=== PATIENT | male | born 1955 | race Caucasian/White ===

== ENCOUNTER 2018-12-05 05:30 | Outpatient (CLI) | payer OTHER ==
[2018-12-05 10:04] LABS: PTT 27.9 SEC (22.9-36.1); Prothrombin Time 12.8 SEC (12.0-14.7)
[2018-12-05 10:18] LABS: Anion Gap 18 mmol/L (10-20); BUN (Urea Nitrogen) 21 mg/dL (8.4-25.7); Calc. Creatinine Clearance 0 mL/min (70-130); Calcium 9.9 mg/dL (7.8-10.44); Carbon Dioxide 21 mmol/L (23-31); Chloride 104 mmol/L (98-107); Estimated GFR-MDRD 76; Glucose 113 mg/dL (80-115); Potassium 4.8 mmol/L (3.5-5.1); Sodium 138 mmol/L (136-145)
[2018-12-05 12:09] LABS: Band 1 % (5-11); Eosinophils 4 % (0-10); Lymphocytes 29 % (21-51); MDiff Complete? YES; Mean Corpuscular HGB CONC 32.7 g/dL (32.0-36.0); Mean Corpuscular Hemoglobin 29.6 pg (27.0-31.0); Mean Corpuscular Volume 90.4 fL (78.0-98.0); Mean Platelet Volume 6.6 fL (7.4-10.4); Monocytes 5 % (0-10); Neutrophil 61 % (42-75); Platelet Count 277 thou/uL (130-400); RBC Distribution Width 13.1 % (11.5-14.5); RBC Morphology Normal; Red Blood Cell (RBC) Count 5.06 mill/uL (4.70-6.10)
--- NOTE | 2018-12-05 20:24 | EKG ---
Test Reason : Blood Pressure : / mmHG Vent. Rate : 073 BPM Atrial Rate : 073 BPM P-R Int : 142 ms QRS Dur : 080 ms QT Int : 366 ms P-R-T Axes : 056 050 046 degrees QTc Int : 403 ms Normal sinus rhythm Normal ECG Confirmed by DR. Cindy ARMENTA (3) on 12/05/2018 8:24:37 PM Referred By: SALLY Confirmed By:DR. Cindy ARMENTA
== END 2018-12-05 05:31 | disposition home or self-care (01) ==
LOC: LABBT 05:30
PROVIDERS: ATTEND Orthopaedic Surgery
DX: Z01.818 Encounter for other preprocedural examination (principal); M16.12 Unilateral primary osteoarthritis, left hip
CPT/HCPCS: 80048; 85025; 85610; 85730; 87081; 93005; 93010

== ENCOUNTER 2018-12-05 08:30 | Inpatient (IN) | payer OTHER ==
[2018-12-17] MEDS ORDERED: Fentanyl 100 MCG/2 ML VIAL ONE (08:45)
[2018-12-17] MEDS ORDERED: Midazolam HCl 2 mg/2 ml Vial ONE (08:45)
[2018-12-17] MEDS ORDERED: traMADol HCl 50 MG TAB PO PRN ×3 (08:53→09:30)
[2018-12-17] MEDS ORDERED: diphenhydrAMINE 25 MG CAP PO PRN ×2 (08:53→09:30)
[2018-12-17] MEDS ORDERED: Ondansetron PF 4 MG/2 ML Vial IVP PRN ×2 (08:53→09:30)
[2018-12-17] MEDS ORDERED: Zolpidem Tartrate 5 MG TAB PO PRN ×2 (08:53→09:30)
[2018-12-17] MEDS ORDERED: CEFAZOLIN 1 GM VIAL ONE (08:53)
[2018-12-17] MEDS ORDERED: Tranexamic Acid 1,000 MG/10 ML VIAL ONE (08:53)
[2018-12-17] MEDS ORDERED: Acetaminophen 325 MG TAB PO PRN (08:53)
[2018-12-17] MEDS ORDERED: Promethazine HCl 25 MG/ML VIAL IM PRN ×2 (08:53→09:30)
[2018-12-17] MEDS ORDERED: HYDROcodone/Acetaminophen 10/325 mg Tablet PO PRN ×2 (08:53)
[2018-12-17] MEDS ORDERED: Sodium Chloride 0.9% 200 ML ONE (08:54)
[2018-12-17] MEDS ORDERED: Lidocaine 1.5% w/Epi 1:200K 30 ML VIAL (Epid Use) ONE (09:18)
[2018-12-17] MEDS ORDERED: Fentanyl 250 MCG/5 ML VIAL ONE (09:22)
[2018-12-17] MEDS ORDERED: diphenhydrAMINE 50 MG/ML VIAL IM PRN (09:30)
[2018-12-17] MEDS ORDERED: Hydrocerin (Eucerin) Cream 120 gm Jar TOP PRN (09:30)
[2018-12-17] MEDS ORDERED: HYDROcodone/Acetaminophen 5/325 mg Tablet PO PRN ×2 (09:30)
[2018-12-17] MEDS ORDERED: Naloxone HCl 0.4 mg/ml Vial IVP PRN (09:30)
[2018-12-17] MEDS ORDERED: diphenhydrAMINE 50 MG/ML VIAL IVP PRN (09:30)
[2018-12-17] MEDS ORDERED: Naloxone HCl 0.4 mg/ml Vial IV PRN (09:30)
[2018-12-17] MEDS ORDERED: Promethazine HCl 25 MG SUPP PR PRN (09:30)
[2018-12-17] MEDS ORDERED: Bupivacaine 0.25% HCL 30 ML VIAL ONE (10:08)
[2018-12-17] MEDS ORDERED: ePHEDrine 50 MG/ML VIAL ONE (12:08)
[2018-12-17] MEDS ORDERED: Lidocaine 1% PF 5 ML VIAL ONE (12:08)
[2018-12-17] MEDS ORDERED: Dexamethasone 20 MG/5 ML VIAL ONE (12:08)
[2018-12-17] MEDS ORDERED: PROPOFOL 200 MG/20 ML VIAL ONE (12:08)
[2018-12-17] MEDS ORDERED: PHENYLEPHRINE-NS 100 MCG/ML 10 ML SYRINGE ONE (12:08)
[2018-12-17] MEDS ORDERED: Glycopyrrolate 0.2 MG/ML 5 ML SYRINGE ONE (12:08)
[2018-12-17] MEDS ORDERED: Ondansetron PF 4 MG/2 ML Vial ONE (12:08)
[2018-12-17] MEDS ORDERED: Rocuronium Bromide 10 MG/ML (10ML VIAL) ONE (12:08)
--- NOTE | 2018-12-17 12:53 | RAD ---
Exam: 2 views of the left hip COMPARISON: None HISTORY: Status post left hip arthroplasty FINDINGS: 2 views of the left hip shows the patient is status post left hip arthroplasty without sharon hardware hardware lucency or fracture. Overlying soft tissue swelling and air in the soft tissues are from recent surgery. IMPRESSION: Status post left hip arthroplasty without evidence of complication.
[2018-12-17] MEDS ORDERED: Ketorolac Tromethamine 30 MG/ML VIAL IM SCH (14:00)
--- NOTE | 2018-12-17 14:01 | OP ---
DATE OF PROCEDURE: 12/17/2018 PREOPERATIVE DIAGNOSIS: Degenerative joint disease, left foot. POSTOPERATIVE DIAGNOSIS: Degenerative joint disease, left foot. PROCEDURE PERFORMED: Left total hip arthroplasty using a Leonard Accolade 3.5 stem and -5 ceramic head, 36 mm x 15 mm PSL cup X3 polyethylene liner. ESTIMATED BLOOD LOSS: 200. MILL ROLL OPERATOR: Gray Gee PA-C PROCEDURE IN DETAIL: After informed consent was obtained in the preoperative holding area, the patient was taken to the operative suite where general anesthesia was induced. The patient was then positioned in the lateral decubitus position. The hip was then prepped and draped in usual sterile fashion. The patient received preoperative antibiotics. Prior to incision, time-out was called and all members of the surgical team agreed upon site, surgeon, and patient. After this, a longitudinal incision was made directly over the trochanter, noted by palpation extending 2 fingerbreadths above and below the trochanter. The deeper subcutaneous layer was undermined with Bovie electrocautery. The iliotibial band was encountered and incised sharply and the plane below this was developed bluntly. A Charnley retractor was placed to hold this opened. The lateral aspect of the trochanter and the abductor muscles were encountered and then reflected anteriorly off the trochanter using Bovie electrocautery. Once this was completed, the anterior capsule was then encountered and identified and copious capsulotomy was carried out, exposing the femoral neck and head. Dislocation maneuver was then performed and an in situ provisional neck cut was then made using the oscillating saw. Attention was then turned to acetabular preparation and sequential reaming was carried out up to the appropriate diameter. A trial was then malleted into place with good firm resistance and no pullout. The permanent acetabular shell was then malleted squarely into place, as was the appropriate liner. Once completed, the wound was copiously irrigated and attention was then turned to femoral preparation. Flexion and external rotation were performed of the exposed thigh and femoral elevators were then placed at the proximal aspect of the wound. Canal finder was used to establish the length of the canal and sequential reaming was carried out, followed by broaching. Once the appropriate stability was established with the trial broaches with flexion, extension and rotational stability, we did trial with neutral and 2 mm offset incremental necks. Once the appropriate size was decided upon, with good stability noted with flexion, extension, internal and external rotation and shuck being negative, we removed the femoral trial broach and malletted into place the permanent prosthesis with good firm fit, which was also stable to rotation. Again, the hip felt very stable to flexion, extension, internal and external rotation. Leg lengths appeared near anatomic clinically and we were quite happy with prosthesis placement. Copious irrigation was then carried out through the entirety of the wound. Primary closure of the abductors was accomplished with interrupted #2 Vicryl [id number] stitches and the IT band was then closed with interrupted #2 Vicryl, oversewn with a #2 running barbed Quill stitch. Subcutaneous fascia was closed with running barbed Quill stitch and a subcuticular Monocryl barbed Quill stitch was used for skin closure and augmented with skin cement. A sterile dressing was applied. The procedure was terminated without any complication. All counts were correct. The patient was awakened in the operative suite and taken to the recovery room in stable condition. Job ID: [id number]
[2018-12-17] MEDS: Sodium Chloride 0.9% 1,000 ML IV SCH ×2 (14:20→17:22)
[2018-12-17] MEDS: Lisinopril/Hydrochlorothiazide 10 mg/12.5 mg Tablet PO SCH (14:22)
[2018-12-17] MEDS: Ferrous Gluconate 324 MG TAB PO SCH ×2 (14:22→21:22)
[2018-12-17] MEDS: Multivitamin W/ Minerals 1 TAB PO SCH (14:22)
[2018-12-17] MEDS: Senokot S 8.6-50 MG TAB PO SCH ×2 (14:22→21:22)
[2018-12-17] MEDS: Aspirin 81 mg Enteric Coated Tablet PO SCH ×2 (14:22→21:22)
[2018-12-17] MEDS: Gabapentin 400 MG CAP PO SCH ×2 (14:22→21:22)
[2018-12-17] MEDS: Ketorolac Tromethamine 30 MG/ML VIAL IVP SCH ×2 (14:23→18:21)
--- NOTE | 2018-12-17 17:52 | PDOC.PN ---
- Subjective Encounter Start Date: 12/17/18 Encounter Start Time: 17:25 Subjective: Consult for med mgmt. Hx of HTN, DM, neuropathy and tobacco abuse. -: s/p L JOSE. Reviewed all hx, labs, rads and EKG's. - Objective MAR Reviewed: Yes Vital Signs & Weight: Vital Signs (12 hours) Temp Pulse Resp BP Pulse Ox 12/17/18 16:24 97.5 F L 72 18 147/77 H 95 12/17/18 13:50 97.6 F 70 18 149/75 H 99 Weight Weight 167 lb EKG Reviewed by me: Yes (NSR, no acute ST-T wave changes, normal axis) Phys Exam - Physical Examination Constitutional: NAD HEENT: PERRLA, sclera anicteric, oral pharynx no lesions Neck: no nodes, no JVD, supple, full ROM few exp wheezes Respiratory: no rales, no rhonchi Distant heart sounds, S1, S2 Cardiovascular: RRR, no significant murmur, no rub, gallop Gastrointestinal: soft, non-tender, no distention, positive bowel sounds L hip with surgical dressing in place Musculoskeletal: pulses present, edema present Neurological: moves all 4 limbs Psychiatric: A&O x 3 Skin: normal turgor, cap refill <2 seconds Dx/Plan (1) DM II (diabetes mellitus, type II), controlled Code(s): E11.9 - TYPE 2 DIABETES MELLITUS WITHOUT COMPLICATIONS Status: Chronic Comment: Add ISS, continue Metformin 1000mg daily, serial accuchecks, ADA (2) HTN (hypertension) Code(s): I10 - ESSENTIAL (PRIMARY) HYPERTENSION Status: Chronic Qualifiers: Hypertension type: essential hypertension Qualified Code(s): I10 - Essential (primary) hypertension Comment: Continue Lisinopril/HCTZ daily, serial BP monitoring (3) Tobacco abuse Code(s): Z72.0 - TOBACCO USE Status: Chronic Comment: Tobacco cessation resources (4) DJD (degenerative joint disease) Code(s): M19.90 - UNSPECIFIED OSTEOARTHRITIS, UNSPECIFIED SITE Status: Chronic Comment: s/p L JOSE, pain control, OOB with PT, ASA 81mg BID - Plan PT/OT, delinquency prevention social worker, out of bed/ambulate, DVT proph w/SCDs Stable currently -: Resume Lisinopril/HCTZ -: Add ISS for glycemic control -: Continue ASA 81mg BID -: Continue Gabapentin * AM lab: CBC * Thank you for the consult, will continue to follow with primary team
[2018-12-17] MEDS ORDERED: HumaLOG 300 UNITS/3 ML VIAL SC PRN (17:53)
[2018-12-17] MEDS ORDERED: Dextrose 50% Abboject 50 ML SYRINGE SLOW IVP PRN (17:53)
[2018-12-17] MEDS ORDERED: Dextrose 5% in Water 1,000 ML IV PRN (17:53)
[2018-12-17] MEDS: CEFAZOLIN 2 GM in Premix Bag 1 BAG IVPB SCH (18:21)
[2018-12-17] MEDS ORDERED: Zolpidem Tartrate 5 MG TAB PO SCH (21:00)
[2018-12-17] MEDS: Atorvastatin Calcium 20 MG TAB PO SCH (21:22)
[2018-12-18] MEDS: Ketorolac Tromethamine 30 MG/ML VIAL IVP SCH ×5 (00:01→23:17)
[2018-12-18] MEDS: CEFAZOLIN 2 GM in Premix Bag 1 BAG IVPB SCH (00:04)
[2018-12-18] MEDS: Sodium Chloride 0.9% 1,000 ML IV SCH ×2 (04:20→14:39)
[2018-12-18] MEDS: Fentanyl 5 mcg/Bup 0.075% Cadd 100 ML EPIDURAL SCH ×2 (04:30→17:51)
[2018-12-18 06:02] LABS: Hemoglobin 11.2 g/dL (14.0-18.0); Mean Corpuscular HGB CONC 33.6 g/dL (32.0-36.0); Mean Corpuscular Hemoglobin 30.3 pg (27.0-31.0); Mean Corpuscular Volume 90.1 fL (78.0-98.0); Mean Platelet Volume 6.6 fL (7.4-10.4); Platelet Count 217 thou/uL (130-400); RBC Distribution Width 12.5 % (11.5-14.5); Red Blood Cell (RBC) Count 3.71 mill/uL (4.70-6.10); White Blood Cell (WBC) Count 11.1 thou/uL (4.8-10.8)
[2018-12-18] MEDS: Gabapentin 400 MG CAP PO SCH ×2 (07:56→20:15)
[2018-12-18] MEDS: Senokot S 8.6-50 MG TAB PO SCH ×2 (07:56→20:13)
[2018-12-18] MEDS: metFORMIN XR 500 MG TAB PO SCH (07:56)
[2018-12-18] MEDS: Multivitamin W/ Minerals 1 TAB PO SCH (07:57)
[2018-12-18] MEDS: Lisinopril/Hydrochlorothiazide 10 mg/12.5 mg Tablet PO SCH (07:57)
[2018-12-18] MEDS: Ferrous Gluconate 324 MG TAB PO SCH ×2 (07:57→20:13)
[2018-12-18] MEDS: Aspirin 81 mg Enteric Coated Tablet PO SCH ×2 (11:18→20:14)
[2018-12-18 11:53] VITALS: BMI 26.2
--- NOTE | 2018-12-18 12:37 | PRG ---
DATE OF SERVICE: 12/18/2018 SUBJECTIVE: Arvin is a 63-year-old white male, who is postop day one from left total hip arthroplasty. He is doing very well. His pain is relatively will controlled and he is otherwise doing well. OBJECTIVE: VITAL SIGNS: Temperature 98.5, pulse 78, respiratory rate 18, blood pressure 151/72. GENERAL: He is alert and oriented to person, place, time, situation, grossly nonfocal. EXTREMITIES: There is no strikethrough at the incision. He is neurovascular intact in the left lower extremity with good leg lengths. LABORATORY DATA: Hemoglobin and hematocrit 11.2 and 33.4. IMPRESSION: 1. A 63-year-old white male, postoperative day one, left total hip arthroplasty, doing well. 2. Mild postoperative asymptomatic hemorrhagic anemia. PLAN: Continue current care. Probable discharge tomorrow. Job ID: [id number]
[2018-12-18] MEDS ORDERED: Calcium Carbonate 500 MG ChewTAB PO PRN (17:00)
--- NOTE | 2018-12-18 17:50 | PDOC.PN ---
- Subjective Encounter Start Date: 12/18/18 Encounter Start Time: 16:35 Subjective: f/u s/p L JOSE POD #1. States pain better controlled after adjustments -: to nerve block. Ambulated with RW. Voiding ok but still has Guerrero in place. - Objective MAR Reviewed: Yes Vital Signs & Weight: Vital Signs (12 hours) Temp Pulse Resp BP BP BP Pulse Ox 12/18/18 15:27 98.1 F 82 16 125/73 94 L 12/18/18 12:52 98.3 F 69 16 108/67 96 12/18/18 08:00 96 12/18/18 07:57 78 151/72 H 12/18/18 07:18 98.5 F 81 18 152/75 H 96 Weight Admit Weight 167 lb Weight 167 lb I&O: 12/17/18 12/18/18 12/19/18 06:59 06:59 06:59 Intake Total 2904 Output Total 2100 Balance 804 Result Diagrams: 12/18/18 05:29 Additional Labs: Accuchecks 12/18/18 12/18/18 12/18/18 15:32 10:02 05:41 POC Glucose 158 H 159 H 126 H 12/17/18 20:38 POC Glucose 283 H Phys Exam - Physical Examination Constitutional: NAD HEENT: PERRLA, sclera anicteric, oral pharynx no lesions Neck: no nodes, no JVD, supple, full ROM diminished in bases, few exp wheezes S1, S2 Cardiovascular: RRR, no significant murmur, no rub, gallop Gastrointestinal: soft, non-tender, no distention, positive bowel sounds L hip with edema and dressing in place Musculoskeletal: pulses present, edema present Neurological: normal sensation, moves all 4 limbs Psychiatric: A&O x 3 Skin: normal turgor, cap refill <2 seconds Deviation from normal: Guerrero with clear urine Dx/Plan (1) DM II (diabetes mellitus, type II), controlled Code(s): E11.9 - TYPE 2 DIABETES MELLITUS WITHOUT COMPLICATIONS Status: Chronic Comment: Add ISS, continue Metformin 1000mg daily, serial accuchecks, ADA (2) HTN (hypertension) Code(s): I10 - ESSENTIAL (PRIMARY) HYPERTENSION Status: Chronic Qualifiers: Hypertension type: essential hypertension Qualified Code(s): I10 - Essential (primary) hypertension Comment: Continue Lisinopril/HCTZ daily, serial BP monitoring (3) Tobacco abuse Code(s): Z72.0 - TOBACCO USE Status: Chronic Comment: Tobacco cessation resources (4) DJD (degenerative joint disease) Code(s): M19.90 - UNSPECIFIED OSTEOARTHRITIS, UNSPECIFIED SITE Status: Chronic Comment: s/p L JOSE, pain control, OOB with PT, ASA 81mg BID (5) Status post left hip replacement Code(s): Z96.642 - PRESENCE OF LEFT ARTIFICIAL HIP JOINT Status: Acute Comment: POD #1, pain control, wean off nerve block, OOB with PT - Plan plan discussed w/ family, PT/OT, social media marketing specialist, incentive spirometry, out of bed/ambulate, DVT proph w/SCDs Stable currently -: Continue Metformin 1000mg daily -: Continue Lisinopril/HCTZ -: Continue ASA 81mg BID -: Likely home in 24h * .
[2018-12-18] MEDS: Atorvastatin Calcium 20 MG TAB PO SCH (20:14)
[2018-12-19] MEDS: Sodium Chloride 0.9% 1,000 ML IV SCH ×2 (00:14→11:00)
[2018-12-19 04:22] LABS: Hemoglobin 10.9 g/dL (14.0-18.0); Mean Corpuscular HGB CONC 33.4 g/dL (32.0-36.0); Mean Corpuscular Hemoglobin 30.5 pg (27.0-31.0); Mean Corpuscular Volume 91.4 fL (78.0-98.0); Mean Platelet Volume 6.6 fL (7.4-10.4); Platelet Count 190 thou/uL (130-400); RBC Distribution Width 12.6 % (11.5-14.5); Red Blood Cell (RBC) Count 3.56 mill/uL (4.70-6.10); White Blood Cell (WBC) Count 12.1 thou/uL (4.8-10.8)
[2018-12-19] MEDS: Ketorolac Tromethamine 30 MG/ML VIAL IVP SCH (06:01)
[2018-12-19] MEDS: HumaLOG 300 UNITS/3 ML VIAL SC PRN ×2 (06:03→11:44)
[2018-12-19] MEDS: Fentanyl 5 mcg/Bup 0.075% Cadd 100 ML EPIDURAL SCH (06:32)
[2018-12-19] MEDS: metFORMIN XR 500 MG TAB PO SCH (08:49)
[2018-12-19] MEDS: Gabapentin 400 MG CAP PO SCH (08:49)
[2018-12-19] MEDS: Ferrous Gluconate 324 MG TAB PO SCH (08:49)
[2018-12-19] MEDS: Aspirin 81 mg Enteric Coated Tablet PO SCH (08:49)
[2018-12-19] MEDS: Multivitamin W/ Minerals 1 TAB PO SCH (08:50)
[2018-12-19] MEDS: Lisinopril/Hydrochlorothiazide 10 mg/12.5 mg Tablet PO SCH (08:50)
[2018-12-19] MEDS: Senokot S 8.6-50 MG TAB PO SCH (08:50)
[2018-12-19] MEDS ORDERED: HYDROcodone/Acetaminophen 10/325 mg Tablet PO PRN ×2 (09:49)
[2018-12-19 11:55] VITALS: BP 157/73; TEMP 98.9
== END 2018-12-19 12:11 | disposition home or self-care (01) | DRG 470 ==
LOC: SJJU 12-17 08:01
PROVIDERS: ADMIT Orthopaedic Surgery; ATTEND Orthopaedic Surgery
PROC: 0SRB03Z Replacement of Left Hip Joint with Ceramic Synthetic Substitute, Open Approach (ICD-10-PCS; principal; 2018-12-17)
DX: M19.072 Primary osteoarthritis, left ankle and foot (principal); D62 Acute posthemorrhagic anemia; E11.9 Type 2 diabetes mellitus without complications; I10 Essential (primary) hypertension; F17.210 Nicotine dependence, cigarettes, uncomplicated; Z71.6 Tobacco abuse counseling
CPT/HCPCS: 36415; 36416; 85027; 86850; 86900; 86901; 90471; 90686; G0008; J0690; J1100; J1885; J2001; J2250; J2405; J2704; J3010; J3370; J3490; J7050; S0020

== ENCOUNTER 2019-03-03 08:52 | Outpatient (CLI) | payer MEDICARE ==
--- NOTE | 2019-03-03 09:48 | CT ---
CT THORAX NONCONTRAST: (Low dose screening chest CT) DATE: 03/03/2019 HISTORY: 64-year-old male with 50+ years of smoking COMPARISON: none FINDINGS: (A) At posterior lateral basilar right lower lobe there is an 8 x 5 x 4 mm noncalcified pulmonary nod ule with slightly irregular margins (axial image 159 of 256, series 2; coronal image 102 of 150, series 403; sagittal image 40 of 208, series 402) (B) At the posterior aspect of right upper lobe broadly abutting the posterior pleural surface, there is an 11 x 5 x 8 mm noncalcified nodule. (Axial image 52 of 256, series 2; coronal image 108 of 150, series 403; sagittal image 79 of 208, series 402). Several centimeters inferior to that, there is a tiny 2 mm pulmonary nodule which is probably a calci fied granuloma (axial image 80 of 256, series 2) The rest of lungs are clear. No bullae. Trachea and major bronchi are patent and clear. No cardiomega ly, pericardial effusion, pleural effusion, or pneumothorax. Calcification throughout LAD, RCA, and LCx. Nonspecific multiple mildly enlarged mediastinal lymph nodes. IMPRESSION: 1) 8 x 5 x 4 mm noncalcified pulmonary nodule in right lower lobe. Lung RADS category 4A (suspicious, 5-15% chance of malignancy). Recommend PET scan and 3 month follow-up low dose CT. 2) 11 x 5 x 8 mm pulmonary nodule in right upper lobe broadly abutting posterior pleural surface. Alt dillon the size is consistent with a lung RADS category 4A lesion, its broad base against pleural surface is less typical for a malignancy. This should also be further evaluated with PET scan and thr ee-month follow-up low dose CT. 3) coronary atherosclerosis due to calcified coronary lesion: ICD-10: I 25.84
== END 2019-03-03 08:53 | disposition home or self-care (01) ==
LOC: CT 08:52
PROVIDERS: ATTEND Internal Medicine Hematology & Oncology
DX: F17.210 Nicotine dependence, cigarettes, uncomplicated (principal); R91.8 Other nonspecific abnormal finding of lung field; I25.84 Coronary atherosclerosis due to calcified coronary lesion
CPT/HCPCS: G0297

== ENCOUNTER 2019-03-11 13:18 | Outpatient (CLI) | payer MEDICARE ==
--- NOTE | 2019-03-11 18:42 | PET ---
PET CT: 03/11/19 HISTORY: 64-year-old male with pulmonary nodules on low dose CT scan of the lungs of 03/03/19. TECHNIQUE: PET scan with CT attenuation correction is performed from the base of the brain through the proximal thighs following intravenous administration of 13 millicuries of 15-fluorodeoxyglucose in the right a ntecubital fossa. COMPARISON: None. CORRELATION: LDCT of chest dated 03/03/19. FINDINGS: No francie hypermetabolism is seen in the neck, chest, axillae, abdomen or pelvis. No hypermetabolic pu lmonary nodules, liver, adrenal or skeletal lesions are seen. The lung nodules noted on the CT scan demonstrate no abnormal FDG localization. There is physiologic activity in the GI and tracts, heart and the visualized portions of the brain . The CT scan used for attenuation correction demonstrates no evidence of pleural effusions or ascites. IMPRESSION: No hypermetabolic activity in the pulmonary nodules. POS: MEREDITHH
== END 2019-03-11 13:19 | disposition home or self-care (01) ==
LOC: PET 13:18
PROVIDERS: ATTEND Internal Medicine Hematology & Oncology
DX: R91.8 Other nonspecific abnormal finding of lung field (principal)
CPT/HCPCS: 78815; A9552

== ENCOUNTER 2019-04-09 15:16 | Inpatient (IN) | payer MEDICARE ==
[2019-05-27] MEDS ORDERED: Sodium Chloride 0.9% 100 ML ONE (06:16)
[2019-05-27] MEDS ORDERED: Tranexamic Acid 1,000 MG/10 ML VIAL ONE (06:16)
[2019-05-27] MEDS ORDERED: Midazolam HCl 2 mg/2 ml Vial ONE (06:17)
[2019-05-27] MEDS ORDERED: Fentanyl 100 MCG/2 ML VIAL ONE ×3 (06:17→08:58)
[2019-05-27] MEDS ORDERED: traMADol HCl 50 MG TAB PO PRN ×3 (06:59→07:00)
[2019-05-27] MEDS ORDERED: Zolpidem Tartrate 5 MG TAB PO PRN ×2 (06:59→07:00)
[2019-05-27] MEDS ORDERED: diphenhydrAMINE 25 MG CAP PO PRN ×2 (06:59→07:00)
[2019-05-27] MEDS ORDERED: Fentanyl 100 MCG/2 ML VIAL SLOW IVP PRN ×3 (06:59→07:21)
[2019-05-27] MEDS ORDERED: Acetaminophen 325 MG TAB PO PRN (06:59)
[2019-05-27] MEDS ORDERED: Acetaminophen 500 MG TAB PO PRN (06:59)
[2019-05-27] MEDS ORDERED: HYDROcodone/Acetaminophen 10/325 mg Tablet PO PRN ×2 (06:59)
[2019-05-27] MEDS ORDERED: Ondansetron PF 4 MG/2 ML Vial IVP PRN ×2 (06:59→07:00)
[2019-05-27] MEDS ORDERED: Promethazine HCl 25 MG/ML VIAL IM PRN ×3 (06:59→07:42)
[2019-05-27] MEDS ORDERED: Naloxone HCl 0.4 mg/ml Vial IV PRN (07:00)
[2019-05-27] MEDS ORDERED: diphenhydrAMINE 50 MG/ML VIAL IVP PRN (07:00)
[2019-05-27] MEDS ORDERED: Hydrocerin (Eucerin) Cream 120 gm Jar TOP PRN (07:00)
[2019-05-27] MEDS ORDERED: diphenhydrAMINE 50 MG/ML VIAL IM PRN (07:00)
[2019-05-27] MEDS ORDERED: fentaNYL Citrate/PF 500 MCG, Bupivacaine 10 ML in Sodium Chloride 0.9% 80 ML EPIDURAL SCH (07:00)
[2019-05-27] MEDS ORDERED: Naloxone HCl 0.4 mg/ml Vial IVP PRN (07:00)
[2019-05-27] MEDS ORDERED: Promethazine HCl 25 MG SUPP PR PRN (07:00)
[2019-05-27] MEDS ORDERED: Bupivacaine 0.25% 10 ML VIAL EPIDURAL PRN (07:00)
[2019-05-27] MEDS ORDERED: HYDROcodone/Acetaminophen 5/325 mg Tablet PO PRN (07:00)
[2019-05-27] MEDS ORDERED: Ropivacaine 0.2% HCl/PF 20 ML ONE (07:24)
[2019-05-27] MEDS ORDERED: Promethazine HCl 25 MG/ML VIAL SLOW IVP PRN (07:42)
[2019-05-27] MEDS ORDERED: Ondansetron HCl/PF 4 MG/2 ML Vial IVP PRN (07:42)
[2019-05-27] MEDS ORDERED: METFORMIN HCL PO SCH (08:00)
[2019-05-27] MEDS ORDERED: Bupivacaine 0.5% 10 ML VIAL ONE (08:34)
[2019-05-27] MEDS ORDERED: Aspirin 81 mg Enteric Coated Tablet PO SCH (09:00)
[2019-05-27] MEDS ORDERED: Sodium Chloride 0.9% 10 ML ONE (09:02)
[2019-05-27] MEDS ORDERED: Bupivacaine 0.5% 10 ML VIAL EPIDURAL SCH (09:30)
--- NOTE | 2019-05-27 09:53 | RAD ---
2 views of the right hip: 05/27/2019 COMPARISON: None HISTORY: Evaluate hip following surgery FINDINGS: There is a right hip arthroplasty. No evidence for hardware failure. There is postoperative gas adjacent to the proximal right femur. Linear density in the region of the psoas muscle on the right suggests postoperative gas in this region as well. IMPRESSION: Postoperative findings consistent with recent right total hip arthroplasty.
--- NOTE | 2019-05-27 10:39 | OP ---
DATE OF PROCEDURE: 05/27/2019 PROCEDURE PERFORMED: Right total hip arthroplasty using a Leonard Accolade II #5 stem with a -5 ceramic head, 50 mm PSL cup, and X3 polyethylene liner. UNISAW OPERATOR: Emre. BLOOD LOSS: About 100. SPECIMEN: None. DRAIN: None. COMPLICATION: None. PROCEDURE IN DETAIL: After informed consent was obtained in the preoperative holding area, the patient was taken to the operative suite where general anesthesia was induced. The patient was then positioned in the lateral decubitus position. The hip was then prepped and draped in usual sterile fashion. The patient received preoperative antibiotics. Prior to incision, time-out was called and all members of the surgical team agreed upon site, surgeon, and patient. After this, a longitudinal incision was made directly over the trochanter, noted by palpation extending 2 fingerbreadths above and below the trochanter. The deeper subcutaneous layer was undermined with Bovie electrocautery. The iliotibial band was encountered and incised sharply and the plane below this was developed bluntly. A Charnley retractor was placed to hold this opened. The lateral aspect of the trochanter and the abductor muscles were encountered and then reflected anteriorly off the trochanter using Bovie electrocautery. Once this was completed, the anterior capsule was then encountered and identified and copious capsulotomy was carried out, exposing the femoral neck and head. Dislocation maneuver was then performed and an in situ provisional neck cut was then made using the oscillating saw. Attention was then turned to acetabular preparation and sequential reaming was carried out up to the appropriate diameter. A trial was then malleted into place with good firm resistance and no pullout. The permanent acetabular shell was then malleted squarely into place, as was the appropriate liner. Once completed, the wound was copiously irrigated and attention was then turned to femoral preparation. Flexion and external rotation were performed of the exposed thigh and femoral elevators were then placed at the proximal aspect of the wound. Canal finder was used to establish the length of the canal and sequential reaming was carried out, followed by broaching. Once the appropriate stability was established with the trial broaches with flexion, extension and rotational stability, we did trial with neutral and 2 mm offset incremental necks. Once the appropriate size was decided upon, with good stability noted with flexion, extension, internal and external rotation and shuck being negative, we removed the femoral trial broach and malletted into place the permanent prosthesis with good firm fit, which was also stable to rotation. Again, the hip felt very stable to flexion, extension, internal and external rotation. Leg lengths appeared near anatomic clinically and we were quite happy with prosthesis placement. Copious irrigation was then carried out through the entirety of the wound. Primary closure of the abductors was accomplished with interrupted #2 Vicryl [id number] stitches and the IT band was then closed with interrupted #2 Vicryl, oversewn with a #2 running barbed Quill stitch. Subcutaneous fascia was closed with running barbed Quill stitch and a subcuticular Monocryl barbed Quill stitch was used for skin closure and augmented with skin cement. A sterile dressing was applied. The procedure was terminated without any complication. All counts were correct. The patient was awakened in the operative suite and taken to the recovery room in stable condition. Job ID: [id number]
[2019-05-27 10:45] VITALS: BMI 25.0
[2019-05-27] MEDS: Senokot S 8.6-50 MG TAB PO SCH ×2 (12:05→21:06)
[2019-05-27] MEDS: Multivitamin W/ Minerals 1 TAB PO SCH (12:05)
[2019-05-27] MEDS: Gabapentin 400 MG CAP PO SCH ×2 (12:06→21:06)
[2019-05-27] MEDS: Sodium Chloride 0.9% 1,000 ML IV SCH ×2 (12:07→14:13)
[2019-05-27] MEDS: Ferrous Gluconate 324 MG TAB PO SCH ×2 (12:07→21:06)
[2019-05-27] MEDS: metFORMIN XR 500 MG TAB PO SCH ×2 (12:07→17:59)
[2019-05-27] MEDS: Aspirin 81 mg Enteric Coated Tablet PO SCH (12:07)
[2019-05-27] MEDS: Ketorolac Tromethamine 30 MG/ML VIAL IM SCH ×2 (14:08→21:08)
[2019-05-27] MEDS: CEFAZOLIN 2 GM in Premix Bag 1 BAG IVPB SCH ×2 (14:09→21:08)
[2019-05-27] MEDS: Lisinopril/Hydrochlorothiazide 10 mg/12.5 mg Tablet PO SCH (14:11)
--- NOTE | 2019-05-27 15:12 | PDOC.HOSPP ---
- Subjective Encounter Date: 05/27/19 Encounter Time: 14:30 Subjective: Patient seen and examined for med mngt. Pain controlled. No CP or SOB. No new complaints. - Objective Vital Signs & Weight: Vital Signs (12 hours) Temp Pulse Resp BP BP Pulse Ox 05/27/19 14:11 76 127/73 05/27/19 10:05 97.8 F 67 18 165/70 H 99 Weight Weight 160 lb I&O: 05/26/19 05/27/19 05/28/19 06:59 06:59 06:59 Intake Total 240 Balance 240 Additional Labs: Accuchecks 05/27/19 11:25 POC Glucose 156 H EKG Reviewed by me: Yes (SR) Hospitalist ROS - Review of Systems Respiratory: denies: cough, dry, shortness of breath, hemoptysis, SOB with excertion, pleuritic pain, sputum, wheezing, other Cardiovascular: denies: chest pain, palpitations, orthopnea, paroxysmal noc. dyspnea, edema, light headedness, other Gastrointestinal: denies: nausea, vomitting, abdominal pain, diarrhea, constipation, melena, hematochezia, other - Medication Medications: Active Medications Generic Name Dose Route Start Last Admin Trade Name Freq PRN Reason Stop Dose Admin Aspirin 81 mg 05/27/19 09:00 05/27/19 12:07 Ecotrin PO Not Given DAILY ANANTH Ferrous Gluconate 324 mg 05/27/19 09:00 05/27/19 12:07 Fergon PO Not Given BID ANANTH Gabapentin 800 mg 05/27/19 09:00 05/27/19 12:06 Neurontin PO Not Given BID ANANTH Lisinopril/HCTZ 1 tab 05/27/19 09:00 05/27/19 14:11 Prinizide 10-12.5 PO 1 tab QAM ANANTH Administration Cefazolin Sodium/Dextrose 2 gm 50 mls @ 100 mls/hr 05/27/19 14:00 05/27/19 14 :09 / Device IVPB 05/27/19 22:29 50 mls Q8HR ANANTH Administration Sodium Chloride 1,000 mls @ 100 mls/hr 05/27/19 07:00 05/27/19 14:13 Normal Saline 0.9% IV 1,000 mls .Q10H ANANTH Administration Iron/Minerals/Multivitamins 1 tab 05/27/19 09:00 05/27/19 12:05 Theragran M PO Not Given DAILY ANANTH Ketorolac Tromethamine 30 mg 05/27/19 14:00 05/27/19 14:08 Toradol IM 05/29/19 14:01 30 mg Q8HR ANANTH Administration Metformin HCl 1,000 mg 05/27/19 08:00 05/27/19 12:07 Glucophage Xr PO Not Given BID-WM ANANTH Senna/Docusate Sodium 2 tab 05/27/19 09:00 05/27/19 12:05 Senokot S PO Not Given BID ANANTH - Exam General Appearance: NAD Neck: supple, no JVD Heart: RRR, no gallops, no rubs Respiratory: CTAB, no rales Gastrointestinal: soft, non-tender, non-distended, normal bowel sounds Extremities: no edema Neurological: no focal deficits Psychiatric: normal affect, A&O x 3 Hosp A/P (1) DM2 (diabetes mellitus, type 2) Status: Acute Qualifiers: Chronic kidney disease stage: stage 2 (mild) (2) HLD (hyperlipidemia) Code(s): E78.5 - HYPERLIPIDEMIA, UNSPECIFIED Status: Chronic (3) HTN (hypertension) Code(s): I10 - ESSENTIAL (PRIMARY) HYPERTENSION Status: Chronic Qualifiers: (4) Diabetic neuropathy Code(s): E11.40 - TYPE 2 DIABETES MELLITUS WITH DIABETIC NEUROPATHY, UNSP Status: Chronic Qualifiers: Diabetes mellitus type: type 2 (5) DJD (degenerative joint disease) Code(s): M19.90 - UNSPECIFIED OSTEOARTHRITIS, UNSPECIFIED SITE Status: Chronic (6) BPH (benign prostatic hyperplasia) Code(s): N40.0 - BENIGN PROSTATIC HYPERPLASIA WITHOUT LOWER URINRY TRACT SYMP Status: Chronic - Plan PT/OT Cont Lipitor Cont Metformin Add sliding scale with glucose checks ACHS Cont Lisinopril/HCTZ Cont Gabapentin Full code. DPOA - self/family
[2019-05-27] MEDS ORDERED: Dextrose 5% in Water 1,000 ML IV PRN (15:15)
[2019-05-27] MEDS ORDERED: Insulin Regular 300 UNITS/3 ML VIAL SC PRN (15:15)
[2019-05-27] MEDS ORDERED: hydrALAZINE 20 MG/ML VIAL SLOW IVP PRN (15:15)
[2019-05-27] MEDS ORDERED: Dextrose 50% Abboject 50 ML SYRINGE SLOW IVP PRN (15:15)
[2019-05-27] MEDS ORDERED: Ondansetron PF 4 MG/2 ML Vial ONE (17:41)
[2019-05-27] MEDS ORDERED: Ketorolac Tromethamine 30 MG/ML VIAL ONE (17:41)
[2019-05-27] MEDS ORDERED: PROPOFOL 200 MG/20 ML VIAL ONE (17:41)
[2019-05-27] MEDS ORDERED: Rocuronium Bromide 10 MG/ML (10ML VIAL) ONE (17:41)
[2019-05-27] MEDS ORDERED: Lidocaine 1% PF 5 ML VIAL ONE (17:41)
[2019-05-27] MEDS ORDERED: Glycopyrrolate 0.2 MG/ML 5 ML SYRINGE ONE (17:41)
[2019-05-27] MEDS: Insulin Regular 300 UNITS/3 ML VIAL SC PRN (18:00)
[2019-05-27] MEDS: Atorvastatin Calcium 20 MG TAB PO SCH (21:06)
[2019-05-28] MEDS: Sodium Chloride 0.9% 1,000 ML IV SCH ×3 (03:25→23:01)
[2019-05-28] MEDS: HYDROcodone/Acetaminophen 5/325 mg Tablet PO PRN ×2 (04:57→08:54)
[2019-05-28] MEDS: Ketorolac Tromethamine 30 MG/ML VIAL IM SCH (05:00)
[2019-05-28 05:31] LABS: Mean Corpuscular HGB CONC 34.8 g/dL (32.0-36.0); Mean Corpuscular Hemoglobin 30.3 pg (27.0-31.0); Mean Corpuscular Volume 87.2 fL (78.0-98.0); Mean Platelet Volume 6.4 fL (7.4-10.4); Platelet Count 210 thou/uL (130-400); RBC Distribution Width 13.1 % (11.5-14.5); Red Blood Cell (RBC) Count 3.95 mill/uL (4.70-6.10); White Blood Cell (WBC) Count 13.4 thou/uL (4.8-10.8)
[2019-05-28] MEDS: Insulin Regular 300 UNITS/3 ML VIAL SC PRN (06:12)
[2019-05-28] MEDS: Gabapentin 400 MG CAP PO SCH ×2 (08:25→21:11)
[2019-05-28] MEDS: Ferrous Gluconate 324 MG TAB PO SCH ×2 (08:25→21:11)
[2019-05-28] MEDS: Multivitamin W/ Minerals 1 TAB PO SCH (08:25)
[2019-05-28] MEDS: metFORMIN XR 500 MG TAB PO SCH ×2 (08:25→17:34)
[2019-05-28] MEDS: Aspirin 81 mg Enteric Coated Tablet PO SCH (08:25)
[2019-05-28] MEDS: Senokot S 8.6-50 MG TAB PO SCH ×2 (08:25→21:11)
[2019-05-28] MEDS: Lisinopril/Hydrochlorothiazide 10 mg/12.5 mg Tablet PO SCH (08:54)
[2019-05-28] MEDS ORDERED: HYDROcodone/Acetaminophen 10/325 mg Tablet PO PRN (09:14)
[2019-05-28] MEDS ORDERED: Fentanyl 100 MCG/2 ML VIAL SLOW IVP PRN (09:15)
[2019-05-28] MEDS: HYDROcodone/Acetaminophen 10/325 mg Tablet PO PRN ×3 (13:12→21:22)
[2019-05-28] MEDS: Ketorolac Tromethamine 30 MG/ML VIAL IVP SCH ×2 (14:56→21:13)
--- NOTE | 2019-05-28 16:14 | PDOC.HOSPP ---
- Subjective Encounter Date: 05/28/19 Encounter Time: 09:15 Subjective: Patient seen and examined for med mngt. No CP or SOB. Pain controlled.. No new complaints. No overnight events - Objective Vital Signs & Weight: Vital Signs (12 hours) Temp Pulse Resp BP BP Pulse Ox 05/28/19 15:27 99.3 F 89 18 164/74 H 94 L 05/28/19 08:54 77 145/76 H 05/28/19 08:03 99.0 F 77 16 145/76 H 95 05/28/19 04:56 98 182/82 H Weight Admit Weight 160 lb Weight 160 lb I&O: 05/27/19 05/28/19 05/29/19 06:59 06:59 06:59 Intake Total 1790 Output Total 725 Balance 1065 Result Diagrams: 05/28/19 04:59 Additional Labs: Accuchecks 05/28/19 05/27/19 05/27/19 05:32 20:51 15:47 POC Glucose 180 H 151 H 226 H Hospitalist ROS - Review of Systems Respiratory: denies: cough, dry, shortness of breath, hemoptysis, SOB with excertion, pleuritic pain, sputum, wheezing, other Cardiovascular: denies: chest pain, palpitations, orthopnea, paroxysmal noc. dyspnea, edema, light headedness, other - Medication Medications: Active Medications Generic Name Dose Route Start Last Admin Trade Name Freq PRN Reason Stop Dose Admin Hydrocodone Bitart/Acetaminophen 2 tab 05/28/19 09:15 05/28/19 13:12 [place] 10/325 PO 2 tab Q4H PRN Administration Pain 5-10 Aspirin 81 mg 05/27/19 09:00 05/28/19 08:25 Ecotrin PO 81 mg DAILY ANANTH Administration Atorvastatin Calcium 20 mg 05/27/19 21:00 05/27/19 21:06 Lipitor PO 20 mg HS ANANTH Administration Ferrous Gluconate 324 mg 05/27/19 09:00 05/28/19 08:25 Fergon PO 324 mg BID ANANTH Administration Gabapentin 800 mg 05/27/19 09:00 05/28/19 08:25 Neurontin PO 800 mg BID ANANTH Administration Lisinopril/HCTZ 1 tab 05/27/19 09:00 05/28/19 08:54 Prinizide 10-12.5 PO 1 tab QAM ANANTH Administration Hydralazine HCl 10 mg 05/27/19 15:15 05/28/19 04:56 Apresoline SLOW IVP 10 mg Q4H PRN Administration SBP Greater Than 180 Sodium Chloride 1,000 mls @ 100 mls/hr 05/27/19 07:00 05/28/19 14:18 Normal Saline 0.9% IV Not Given .Q10H ANANTH Insulin Human Regular 0 units 05/27/19 15:15 05/28/19 06:12 Humulin R SC 2 unit .MILD SLIDING SCALE PRN Administration Mild Correctional Scale Iron/Minerals/Multivitamins 1 tab 05/27/19 09:00 05/28/19 08:25 Theragran M PO 1 tab DAILY ANANTH Administration Ketorolac Tromethamine 30 mg 05/28/19 14:00 05/28/19 14:56 Toradol IVP 05/29/19 14:01 30 mg Q8HR ANANTH Administration Metformin HCl 1,000 mg 05/27/19 08:00 05/28/19 08:25 Glucophage Xr PO 1,000 mg BID-WM ANANTH Administration Senna/Docusate Sodium 2 tab 05/27/19 09:00 05/28/19 08:25 Senokot S PO 2 tab BID ANANTH Administration - Exam General Appearance: NAD Heart: RRR, no rubs Respiratory: CTAB, no rales Gastrointestinal: soft, non-tender, normal bowel sounds Extremities: no edema Neurological: no new deficit Hosp A/P (1) DM2 (diabetes mellitus, type 2) Status: Acute Qualifiers: Chronic kidney disease stage: stage 2 (mild) (2) HLD (hyperlipidemia) Code(s): E78.5 - HYPERLIPIDEMIA, UNSPECIFIED Status: Chronic (3) HTN (hypertension) Code(s): I10 - ESSENTIAL (PRIMARY) HYPERTENSION Status: Chronic Qualifiers: (4) Diabetic neuropathy Code(s): E11.40 - TYPE 2 DIABETES MELLITUS WITH DIABETIC NEUROPATHY, UNSP Status: Chronic Qualifiers: Diabetes mellitus type: type 2 (5) DJD (degenerative joint disease) Code(s): M19.90 - UNSPECIFIED OSTEOARTHRITIS, UNSPECIFIED SITE Status: Chronic (6) BPH (benign prostatic hyperplasia) Code(s): N40.0 - BENIGN PROSTATIC HYPERPLASIA WITHOUT LOWER URINRY TRACT SYMP Status: Chronic - Plan PT/OT, incentive spirometry Cont Lipitor/Metformin/Gabapentin Contmild sliding scale with glucose checks ACHS Cont Lisinopril/HCTZ
[2019-05-28] MEDS: Atorvastatin Calcium 20 MG TAB PO SCH (21:12)
[2019-05-29] MEDS: HYDROcodone/Acetaminophen 10/325 mg Tablet PO PRN ×3 (03:39→12:31)
[2019-05-29 03:53] VITALS: TEMP 98.5
[2019-05-29] MEDS: Ketorolac Tromethamine 30 MG/ML VIAL IVP SCH (05:10)
[2019-05-29 05:12] LABS: Hemoglobin 10.9 g/dL (14.0-18.0); Mean Corpuscular HGB CONC 34.5 g/dL (32.0-36.0); Mean Corpuscular Hemoglobin 30.4 pg (27.0-31.0); Mean Platelet Volume 6.6 fL (7.4-10.4); Platelet Count 175 thou/uL (130-400); RBC Distribution Width 12.8 % (11.5-14.5); Red Blood Cell (RBC) Count 3.58 mill/uL (4.70-6.10); White Blood Cell (WBC) Count 12.2 thou/uL (4.8-10.8)
[2019-05-29] MEDS: Multivitamin W/ Minerals 1 TAB PO SCH (08:27)
[2019-05-29] MEDS: Lisinopril/Hydrochlorothiazide 10 mg/12.5 mg Tablet PO SCH (08:27)
[2019-05-29] MEDS: Gabapentin 400 MG CAP PO SCH (08:28)
[2019-05-29] MEDS: metFORMIN XR 500 MG TAB PO SCH (08:28)
[2019-05-29] MEDS: Aspirin 81 mg Enteric Coated Tablet PO SCH (08:28)
[2019-05-29] MEDS: Senokot S 8.6-50 MG TAB PO SCH (08:28)
[2019-05-29] MEDS: Ferrous Gluconate 324 MG TAB PO SCH (08:28)
[2019-05-29] MEDS ORDERED: Aspirin 81 mg Enteric Coated Tablet PO SCH (09:00)
--- NOTE | 2019-05-29 09:26 | DIS ---
DATE OF ADMISSION: 05/27/2019 DATE OF DISCHARGE: 05/29/2019 This is Claudia Andrea PA-C dictating a report for Jarret Selby MD. CONSULTANTS: [facility] in [facility]. PREOPERATIVE DIAGNOSIS: Degenerative arthritis, right hip. POSTOPERATIVE DIAGNOSIS: Degenerative arthritis, right hip. PROCEDURE PERFORMED: Right total hip arthroplasty utilizing Leonard components. BRIEF HOSPITAL COURSE: This is a 64-year-old gentleman, who was indicated for the above-mentioned procedure after failing conservative management. Postoperatively, he was admitted to the [place] [address] surgical floor in [facility], where he worked with physical and occupational therapist. His pain was managed postoperatively by [facility]. He received and completed postoperative antibiotics. He worked slowly with therapy on postoperative day 1, but then on postoperative day 2, improved significantly. He was then discharged on postoperative day #2 to home. No complications were incurred during this hospital stay. DISCHARGE DISPOSITION: Home. DISCHARGE CONDITION: Stable. DISCHARGE INSTRUCTIONS: The patient will follow up with Dr. Selby as scheduled. He will keep his surgical wound clean, dry, and intact until followup. DISCHARGE MEDICATIONS: See MAR. Job ID: [id number]
[2019-05-29] MEDS: Sodium Chloride 0.9% 1,000 ML IV SCH (09:42)
[2019-05-29 12:17] VITALS: BP 168/73
== END 2019-05-29 12:44 | disposition home or self-care (01) | DRG 470 ==
LOC: SJJU 05-27 05:32
PROVIDERS: ADMIT Orthopaedic Surgery; ATTEND Orthopaedic Surgery
PROC: 0SR9039 Replacement of Right Hip Joint with Ceramic Synthetic Substitute, Cemented, Open Approach (ICD-10-PCS; principal; 2019-05-27)
DX: M16.11 Unilateral primary osteoarthritis, right hip (principal); E11.22 Type 2 diabetes mellitus with diabetic chronic kidney disease; E78.5 Hyperlipidemia, unspecified; I12.9 Hypertensive chronic kidney disease with stage 1 through stage 4 chronic kidney disease, or unspecified chronic kidney disease; N18.2 Chronic kidney disease, stage 2 (mild); E11.40 Type 2 diabetes mellitus with diabetic neuropathy, unspecified; N40.0 Benign prostatic hyperplasia without lower urinary tract symptoms; Z79.84 Long term (current) use of oral hypoglycemic drugs; Z79.82 Long term (current) use of aspirin; Z79.899 Other long term (current) drug therapy; Z91.018 Allergy to other foods
CPT/HCPCS: 36415; 36416; 85027; J0360; J0690; J1815; J1885; J2001; J2250; J2405; J2704; J2795; J3010; J3370; J3490

== ENCOUNTER 2019-11-13 06:04 | Day surgery (SDC) | payer MEDICARE ==
[2019-11-05 13:58] VITALS: BMI 26.6
[2019-11-13] MEDS ORDERED: Lidocaine 1% w/Epinephrine 1:100K 20 ML VIAL ONE (06:57)
[2019-11-13] MEDS ORDERED: Fentanyl 100 MCG/2 ML VIAL ONE (07:05)
[2019-11-13 07:19] LABS: Hemoglobin 15.5 g/dL (14.0-18.0); Mean Corpuscular Volume 87.3 fL (78.0-98.0); Mean Platelet Volume 7.3 fL (7.4-10.4); Platelet Count 270 thou/uL (130-400); RBC Distribution Width 13.4 % (11.5-14.5); Red Blood Cell (RBC) Count 5.54 mill/uL (4.70-6.10); White Blood Cell (WBC) Count 14.3 thou/uL (4.8-10.8)
[2019-11-13 07:39] LABS: Anion Gap 12 mmol/L (10-20); BUN (Urea Nitrogen) 9 mg/dL (8.4-25.7); Calc. Creatinine Clearance 93 mL/min (70-130); Calcium 8.7 mg/dL (7.8-10.44); Carbon Dioxide 25 mmol/L (23-31); Chloride 105 mmol/L (98-107); Estimated GFR-MDRD 89; Glucose 136 mg/dL (80-115); Potassium 4.7 mmol/L (3.5-5.1); Sodium 137 mmol/L (136-145)
[2019-11-13] MEDS ORDERED: Bupivacaine PF 0.5% 30 ML VIAL ONE (07:39)
--- NOTE | 2019-11-13 09:21 | OP ---
DATE OF PROCEDURE: 11/13/2019 PREOPERATIVE DIAGNOSIS: Cubital tunnel syndrome, left. POSTOPERATIVE DIAGNOSIS: Cubital tunnel syndrome, left. PROCEDURE PERFORMED: Cubital tunnel release. ANESTHESIA: General. ESTIMATED BLOOD LOSS: Minimal. SPECIMENS: None. DRAINS: None. COMPLICATION: None. DESCRIPTION OF PROCEDURE: After receiving Ancef, his arm was prepped and draped in the usual sterile fashion. Arm was exsanguinated. Tourniquet was inflated to 250 mmHg. I made an incision over the medial condyle. This was carried out of the nerve, which was dissected proximally and distally from the arcade above to the motor branch as below. Once the nerve was circumferentially decompressed to mobilize, we used bipolar to control bleeding. Tourniquet was released. Irrigation performed. I injected the skin with Marcaine and lidocaine. The skin was closed with 3-0 Vicryl and vaibhav. Sterile dressings applied. Job ID: [id number]
[2019-11-13] MEDS ORDERED: Lidocaine 1% PF 5 ML VIAL ONE (10:48)
[2019-11-13] MEDS ORDERED: Ondansetron PF 4 MG/2 ML Vial ONE (10:48)
[2019-11-13] MEDS ORDERED: Ketorolac Tromethamine 30 MG/ML VIAL ONE (10:48)
[2019-11-13] MEDS ORDERED: PROPOFOL 200 MG/20 ML VIAL ONE (10:48)
--- NOTE | 2019-11-13 16:59 | EKG ---
Test Reason : PREOP Blood Pressure : / mmHG Vent. Rate : 069 BPM Atrial Rate : 069 BPM P-R Int : 150 ms QRS Dur : 088 ms QT Int : 392 ms P-R-T Axes : 041 022 072 degrees QTc Int : 420 ms Normal sinus rhythm Normal ECG Confirmed by MIMA RUIZ ([id number]) on 11/13/2019 4:58:47 PM Referred By: SALLY Confirmed By:MIMA RUIZ
== END 2019-11-13 10:20 | disposition home or self-care (01) ==
LOC: SDC 06:04
PROVIDERS: ATTEND Orthopaedic Surgery
PROC: 01N40ZZ Release Ulnar Nerve, Open Approach (ICD-10-PCS; principal; 2019-11-13)
DX: G56.22 Lesion of ulnar nerve, left upper limb (principal); E11.9 Type 2 diabetes mellitus without complications; E78.5 Hyperlipidemia, unspecified; I10 Essential (primary) hypertension; G89.29 Other chronic pain; F17.200 Nicotine dependence, unspecified, uncomplicated; M51.9 Unspecified thoracic, thoracolumbar and lumbosacral intervertebral disc disorder; Z79.82 Long term (current) use of aspirin; Z79.84 Long term (current) use of oral hypoglycemic drugs; Z79.899 Other long term (current) drug therapy; Z91.018 Allergy to other foods; Z96.653 Presence of artificial knee joint, bilateral
CPT/HCPCS: 80048; 85027; 93005; 93010; J0690; J1885; J2001; J2405; J2704; J3010; S0020

== ENCOUNTER → 2021-07-15 | Day surgery (SDC) | payer MEDICARE ==
[~2021-07-15] MED LIST: Iopamidol 370 76% 100 ML VIAL ONE
== END ==
LOC: CT 09:01 → RAD 09:02
PROVIDERS: ATTEND Internal Medicine Hematology & Oncology
DX: C18.7 Malignant neoplasm of sigmoid colon (principal); F17.200 Nicotine dependence, unspecified, uncomplicated; D72.829 Elevated white blood cell count, unspecified; R91.8 Other nonspecific abnormal finding of lung field; I25.10 Atherosclerotic heart disease of native coronary artery without angina pectoris; I25.84 Coronary atherosclerosis due to calcified coronary lesion; N20.0 Calculus of kidney; I71.4 Abdominal aortic aneurysm, without rupture; Z91.018 Allergy to other foods; Z96.643 Presence of artificial hip joint, bilateral
CPT/HCPCS: 71260; 74177; Q9967

== ENCOUNTER 2021-07-22 14:15 | Inpatient (IN) | payer MEDICARE ==
[2021-07-27] MEDS ORDERED: Ketamine 50 MG/ML (10ML VIAL) ONE (12:24)
[2021-07-27] MEDS ORDERED: Fentanyl 250 MCG/5 ML VIAL ONE (12:24)
[2021-07-27] MEDS ORDERED: cefOXitin Sodium/Dextrose 2 GM/50 ML BAG ONE (12:28)
[2021-07-27] MEDS ORDERED: Midazolam HCl 2 mg/2 ml Vial ONE (12:32)
[2021-07-27] MEDS ORDERED: Dexamethasone 20 MG/5 ML VIAL ONE (13:08)
[2021-07-27] MEDS ORDERED: Glycopyrrolate 0.2 MG/ML 5 ML SYRINGE ONE (13:08)
[2021-07-27] MEDS ORDERED: Lidocaine 1% PF 5 ML VIAL ONE (13:08)
[2021-07-27] MEDS ORDERED: Ondansetron PF 4 MG/2 ML Vial ONE (13:08)
[2021-07-27] MEDS ORDERED: Bupivacaine HCl 0.5%/Epinephrine 1:200,000/PF 30 ml Vial ONE (13:08)
[2021-07-27] MEDS ORDERED: PROPOFOL 200 MG/20 ML VIAL ONE (13:08)
[2021-07-27] MEDS ORDERED: Rocuronium Bromide 10 MG/ML (10ML VIAL) ONE (13:08)
[2021-07-27] MEDS ORDERED: ePHEDrine 50 MG/ML VIAL ONE (13:08)
[2021-07-27] MEDS ORDERED: Promethazine HCl 25 MG/ML VIAL IM PRN (15:53)
[2021-07-27] MEDS ORDERED: Ketorolac Tromethamine 30 MG/ML VIAL IVP PRN (15:53)
[2021-07-27] MEDS ORDERED: Ondansetron PF 4 MG/2 ML Vial IVP PRN (15:53)
[2021-07-27] MEDS ORDERED: Insulin Regular 300 UNITS/3 ML VIAL SC PRN (15:53)
[2021-07-27] MEDS ORDERED: hydrALAZINE 20 MG/ML VIAL SLOW IVP PRN (15:53)
[2021-07-27] MEDS ORDERED: Ketorolac Tromethamine 30 MG/ML VIAL ONE (16:02)
[2021-07-27] MEDS ORDERED: Morphine 4 MG/ML VIAL SLOW IVP PRN (17:03)
[2021-07-27] MEDS ORDERED: Zolpidem Tartrate 5 MG TAB PO PRN (17:04)
[2021-07-27] MEDS: Morphine 4 MG/ML VIAL SLOW IVP PRN (17:34)
[2021-07-27] MEDS: Sodium Chloride 0.9% 1,000 ML IV SCH (17:36)
[2021-07-27] MEDS: Amlodipine 5 MG TAB PO SCH (20:45)
[2021-07-27] MEDS: Famotidine 20 MG TAB PO SCH (20:46)
[2021-07-27] MEDS: Gabapentin 400 MG CAP PO SCH (20:46)
[2021-07-27] MEDS: Tamsulosin HCl 0.4 MG CAP PO SCH (20:47)
[2021-07-27] MEDS: cefOXitin Sodium 1 GM in Sodium Chloride 0.9% 100 ML IVPB SCH (20:47)
[2021-07-27] MEDS: Famotidine/PF 20 mg/2ml Vial SLOW IVP SCH (22:46)
[2021-07-28] MEDS: Sodium Chloride 0.9% 1,000 ML IV SCH (03:28)
[2021-07-28] MEDS: cefOXitin Sodium 1 GM in Sodium Chloride 0.9% 100 ML IVPB SCH (04:57)
[2021-07-28] MEDS: Morphine 4 MG/ML VIAL SLOW IVP PRN ×4 (05:01→21:07)
[2021-07-28 06:12] LABS: Band 5 % (5-11); Hemoglobin 13.5 g/dL (14.0-18.0); Lymphocytes 1 % (21-51); MDiff Complete? YES; Mean Corpuscular HGB CONC 34.1 g/dL (32.0-36.0); Mean Corpuscular Hemoglobin 30.2 pg (27.0-31.0); Mean Corpuscular Volume 88.4 fL (78.0-98.0); Mean Platelet Volume 7.1 fL (7.4-10.4); Monocytes 9 % (0-10); Neutrophil 85 % (42-75); Platelet Count 200 thou/uL (130-400); Platelet Morphology Comment Appears Adequate; RBC Distribution Width 13.5 % (11.5-14.5); Red Blood Cell (RBC) Count 4.47 mill/uL (4.70-6.10); White Blood Cell (WBC) Count 13.4 thou/uL (4.8-10.8)
[2021-07-28 06:13] LABS: Anion Gap 15 mmol/L (10-20); BUN (Urea Nitrogen) 13 mg/dL (8.4-25.7); Calc. Creatinine Clearance 0 mL/min (70-130); Calcium 8.5 mg/dL (7.8-10.44); Carbon Dioxide 22 mmol/L (23-31); Chloride 94 mmol/L (98-107); Glucose 140 mg/dL (80-115); Potassium 5.5 mmol/L (3.5-5.1); Sodium 125 mmol/L (136-145)
[2021-07-28] MEDS: Gabapentin 400 MG CAP PO SCH ×2 (08:18→21:03)
[2021-07-28] MEDS: Famotidine 20 MG TAB PO SCH ×2 (08:18→21:04)
[2021-07-28] MEDS: Amlodipine 5 MG TAB PO SCH ×2 (08:18→21:04)
[2021-07-28] MEDS ORDERED: Enoxaparin Sodium 40 MG/0.4 ML SYRINGE SC SCH (09:00)
[2021-07-28] MEDS: Famotidine/PF 20 mg/2ml Vial SLOW IVP SCH ×2 (10:26→21:05)
[2021-07-28] MEDS: Lisinopril/Hydrochlorothiazide 10 mg/12.5 mg Tablet PO SCH (10:26)
[2021-07-28] MEDS ORDERED: Sodium Chloride 0.9% 1,000 ML IV SCH (11:12)
[2021-07-28 15:19] LABS: Potassium 4.3 mmol/L (3.5-5.1)
[2021-07-28] MEDS: HYDROcodone/Acetaminophen 7.5/325 mg Tablet PO PRN (16:25)
[2021-07-28] MEDS: Tamsulosin HCl 0.4 MG CAP PO SCH (21:03)
[2021-07-29 05:01] LABS: #Eosinphils 0.1 thou/uL (0.0-0.7); #Lymphocytes 1.5 thou/uL (1.20-3.40); #Monocytes 0.8 thou/uL (0.11-0.59); #Neutrophils 7.7 thou/uL (1.40-6.50); %Basophils 0.3 % (0.0-1.0); %Eosinophils 1.2 % (0.0-10.0); %Monocytes 7.9 % (0.0-10.0); %Neutrophils 75.7 % (42.0-75.0); Hemoglobin 13.4 g/dL (14.0-18.0); Mean Corpuscular HGB CONC 34.5 g/dL (32.0-36.0); Mean Corpuscular Hemoglobin 30.6 pg (27.0-31.0); Mean Corpuscular Volume 88.8 fL (78.0-98.0); Mean Platelet Volume 6.1 fL (7.4-10.4); Platelet Count 248 thou/uL (130-400); RBC Distribution Width 13.6 % (11.5-14.5); Red Blood Cell (RBC) Count 4.37 mill/uL (4.70-6.10); White Blood Cell (WBC) Count 10.2 thou/uL (4.8-10.8)
[2021-07-29 05:23] LABS: Anion Gap 12 mmol/L (10-20); BUN (Urea Nitrogen) 11 mg/dL (8.4-25.7); Calc. Creatinine Clearance 0 mL/min (70-130); Calcium 8.4 mg/dL (7.8-10.44); Carbon Dioxide 23 mmol/L (23-31); Chloride 95 mmol/L (98-107); Glucose 77 mg/dL (80-115); Potassium 4.2 mmol/L (3.5-5.1); Sodium 126 mmol/L (136-145)
[2021-07-29 07:46] VITALS: TEMP 98.2
[2021-07-29] MEDS: HYDROcodone/Acetaminophen 7.5/325 mg Tablet PO PRN ×2 (08:36→12:47)
[2021-07-29] MEDS: Amlodipine 5 MG TAB PO SCH (08:37)
[2021-07-29] MEDS: Famotidine 20 MG TAB PO SCH (08:37)
[2021-07-29] MEDS: Gabapentin 400 MG CAP PO SCH (08:37)
[2021-07-29] MEDS ORDERED: Enoxaparin Sodium 40 MG/0.4 ML SYRINGE SC SCH (09:00)
[2021-07-29] MEDS: Famotidine/PF 20 mg/2ml Vial SLOW IVP SCH (10:13)
[2021-07-29] MEDS: Lisinopril/Hydrochlorothiazide 10 mg/12.5 mg Tablet PO SCH (10:15)
[2021-07-29 11:56] VITALS: BP 134/72
== END 2021-07-29 14:57 | disposition home or self-care (01) | DRG 331 ==
LOC: EDSTATUS 14:15 → SURG A 07-27 11:42 → SURG B 07-27 17:20
PROVIDERS: ADMIT Surgery; ATTEND Surgery
PROC: 0D1B4Z4 Bypass Ileum to Cutaneous, Percutaneous Endoscopic Approach (ICD-10-PCS; principal; 2021-07-27)
PROC: 0DBG4ZZ Excision of Left Large Intestine, Percutaneous Endoscopic Approach (ICD-10-PCS; 2021-07-27)
DX: C18.7 Malignant neoplasm of sigmoid colon (principal); I10 Essential (primary) hypertension; E78.5 Hyperlipidemia, unspecified; J44.9 Chronic obstructive pulmonary disease, unspecified; G62.9 Polyneuropathy, unspecified; J30.2 Other seasonal allergic rhinitis; M19.90 Unspecified osteoarthritis, unspecified site; G56.22 Lesion of ulnar nerve, left upper limb; Z96.643 Presence of artificial hip joint, bilateral; F17.210 Nicotine dependence, cigarettes, uncomplicated; F41.9 Anxiety disorder, unspecified; F32.A Depression, unspecified; N40.0 Benign prostatic hyperplasia without lower urinary tract symptoms; Z79.899 Other long term (current) drug therapy; Z79.84 Long term (current) use of oral hypoglycemic drugs; Z79.82 Long term (current) use of aspirin
CPT/HCPCS: 36415; 36416; 80048; 85025; 88309; J0694; J1100; J1650; J1885; J2250; J2270; J2405; J2704; J3010; J3490; J7050

== ENCOUNTER 2021-07-22 15:09 | Outpatient (CLI) | payer MEDICARE ==
[2021-07-22 18:00] LABS: #Basophils 0.1 10x3/uL (0.0-0.2); #Eosinphils 0.4 10x3/uL (0.0-0.5); #Neutrophils 6.9 10x3/uL (1.5-8.4); %Basophils 1.2 % (0.0-2.0); %Eosinophils 3.8 % (0.0-6.0); %Lymphocytes 22.2 % (18.0-47.0); %Monocytes 9.2 % (0.0-10.0); Hemoglobin 15.3 g/dL (13.5-17.5); Mean Corpuscular HGB CONC 33.6 g/dL (32.0-36.0); Mean Corpuscular Hemoglobin 28.8 pg (27.0-33.0); Mean Corpuscular Volume 85.9 fl (81.2-95.1); Mean Platelet Volume 8.5 fl (7.4-10.4); Platelet Count 326 10x3/uL (150-450); RBC Distribution Width 14.3 % (11.5-14.5); Red Blood Cell (RBC) Count 5.31 10x6/uL (4.32-5.72); White Blood Cell (WBC) Count 10.9 10x3/uL (3.5-10.5)
[2021-07-22 18:25] LABS: Anion Gap 16 mmol/L (10-20); BUN (Urea Nitrogen) 17 mg/dL (8.4-25.7); Calc. Creatinine Clearance 0 mL/min (70-130); Carbon Dioxide 24 mmol/L (23-31); Chloride 94 mmol/L (98-107); Glucose 105 mg/dL (80-115); Potassium 4.5 mmol/L (3.5-5.1); Sodium 129 mmol/L (136-145)
[2021-07-22 20:33] LABS: Hemoglobin A1c 6.2 % (4.0-6.0)
[2021-07-23 00:37] LABS: SARS-CoV-2 PCR by NAA Not Detected (NotDetected)
== END 2021-07-22 15:10 | disposition home or self-care (01) ==
LOC: LABBT 15:09
PROVIDERS: ATTEND Surgery
DX: Z01.812 Encounter for preprocedural laboratory examination (principal); C18.9 Malignant neoplasm of colon, unspecified; Z20.822 Contact with and (suspected) exposure to COVID-19
CPT/HCPCS: 80048; 83036; 85025; U0003; U0005

== ENCOUNTER 2021-07-30 19:12 | Inpatient (IN) | payer MEDICARE ==
[~2021-07-30 19:12] MED LIST changes: -Iopamidol 370 76% 100 ML VIAL ONE; +Iopamidol-370 76% 500 ML 1 ML ONE
[2021-07-30 20:40] LABS: #Lymphocytes 0.8 thou/uL (1.20-3.40); #Monocytes 1.1 thou/uL (0.11-0.59); #Neutrophils 9.8 thou/uL (1.40-6.50); %Basophils 0.3 % (0.0-1.0); %Eosinophils 0.3 % (0.0-10.0); %Lymphocytes 7.1 % (21.0-51.0); %Monocytes 9.5 % (0.0-10.0); %Neutrophils 82.9 % (42.0-75.0); Hemoglobin 15.6 g/dL (14.0-18.0); Mean Corpuscular HGB CONC 34.1 g/dL (32.0-36.0); Mean Corpuscular Hemoglobin 30.2 pg (27.0-31.0); Mean Corpuscular Volume 88.6 fL (78.0-98.0); Mean Platelet Volume 6.3 fL (7.4-10.4); Platelet Count 334 thou/uL (130-400); RBC Distribution Width 13.5 % (11.5-14.5); Red Blood Cell (RBC) Count 5.16 mill/uL (4.70-6.10); White Blood Cell (WBC) Count 11.8 thou/uL (4.8-10.8)
[2021-07-30] MEDS ORDERED: Morphine 4 MG/ML VIAL ONE (20:44)
[2021-07-30] MEDS ORDERED: Ondansetron PF 4 MG/2 ML Vial ONE (20:44)
[2021-07-30 21:00] LABS: Bacteria/HPF 1+ HPF (None Seen); Bilirubin Negative (Negative); Blood, Urine Negative (Negative); Clarity Clear (Clear); Glucose, Urine (Dipstick) Normal (Negative); Ketone, Urine 10 mg/dL (Negative); Leukocyte 75 Leu/uL (Negative); Nitrite Negative (Negative); Protein, Urine (Dipstick) 50 mg/dL (Neg-Trace); RBC/HPF 0-3 HPF (0-3); Specific Gravity, Urine 1.025 (1.002-1.036); Squamous Epithelial None Seen HPF (0-3); Urobilinogen Normal mg/dL (Less than 2); pH, Urine 5.5 (5.0-9.0)
[2021-07-30 21:36] LABS: ALT (SGPT) 17 U/L (8-55); AST (SGOT) 15 U/L (5-34); Albumin 3.9 g/dL (3.4-4.8); Alkaline Phosphatase 91 U/L (40-110); Anion Gap 18 mmol/L (10-20); BUN (Urea Nitrogen) 16 mg/dL (8.4-25.7); Calc. Creatinine Clearance 0 mL/min (70-130); Calcium 9.6 mg/dL (7.8-10.44); Carbon Dioxide 27 mmol/L (23-31); Chloride 88 mmol/L (98-107); Globulin 2.9 g/dL (2.4-3.5); Glucose 143 mg/dL (80-115); Potassium 4.5 mmol/L (3.5-5.1); Protein, Total 6.8 g/dL (5.8-8.1); Sodium 128 mmol/L (136-145)
[2021-07-30] MEDS ORDERED: Benzocaine 20% Spray 60 ML CAN ONE (23:51)
[2021-07-30] MEDS ORDERED: Nicotine 14 MG PATCH ONE (23:51)
[2021-07-31 01:15] VITALS: BMI 25.4
[2021-07-31] MEDS ORDERED: Morphine 4 MG/ML VIAL SLOW IVP PRN ×3 (01:33→09:56)
[2021-07-31] MEDS ORDERED: Ondansetron PF 4 MG/2 ML Vial IVP PRN ×2 (01:45→09:45)
[2021-07-31] MEDS ORDERED: Acetaminophen 325 MG TAB PO PRN (01:45)
[2021-07-31] MEDS ORDERED: Sodium Chloride 0.9% 1,000 ML IV SCH (01:45)
[2021-07-31] MEDS ORDERED: Ondansetron ODT 4 MG TAB SL PRN (01:45)
[2021-07-31] MEDS: Lorazepam 2 MG/ML VIAL SLOW IVP PRN ×3 (02:19→22:27)
[2021-07-31] MEDS ORDERED: FLU VACC QS2021-22(65YR UP)/PF 240 MCG/0.7 ML SYRINGE IM ONE (09:00)
[2021-07-31] MEDS ORDERED: Morphine 2 MG/ML VIAL SLOW IVP PRN (09:45)
[2021-07-31] MEDS ORDERED: hydrALAZINE 20 MG/ML VIAL SLOW IVP PRN (09:45)
[2021-07-31] MEDS ORDERED: Dextrose 5% in Water 1,000 ML IV PRN (09:48)
[2021-07-31] MEDS ORDERED: HumaLOG 300 UNITS/3 ML VIAL SC PRN (09:48)
[2021-07-31] MEDS ORDERED: Dextrose 50% Abboject 50 ML SYRINGE SLOW IVP PRN (09:48)
[2021-07-31] MEDS ORDERED: Non-Formulary Item 1 EACH (Zolpidem Tartrate [Ambien] 10 MG Tablet) PO PRN (09:48)
[2021-07-31] MEDS: Sodium Chloride 0.9% 1,000 ML IV SCH ×2 (10:37→18:30)
[2021-07-31] MEDS: Amlodipine 5 MG TAB PO SCH (20:36)
[2021-07-31] MEDS: Tamsulosin HCl 0.4 MG CAP PO SCH (20:39)
[2021-07-31] MEDS: Famotidine/PF 20 mg/2ml Vial SLOW IVP SCH (20:39)
[2021-07-31] MEDS: Enoxaparin Sodium 40 MG/0.4 ML SYRINGE SC SCH (20:39)
[2021-07-31] MEDS ORDERED: Non-Formulary Item 1 EACH (Amlodipine Besylate [Norvasc] 2.5 MG Tablet) PO SCH (21:00)
[2021-07-31] MEDS: Zolpidem Tartrate 5 MG TAB PO PRN (22:27)
[2021-08-01] MEDS: Sodium Chloride 0.9% 1,000 ML IV SCH (02:23)
[2021-08-01 04:58] LABS: #Eosinphils 0.1 thou/uL (0.0-0.7); #Monocytes 0.9 thou/uL (0.11-0.59); #Neutrophils 5.1 thou/uL (1.40-6.50); %Basophils 0.5 % (0.0-1.0); %Eosinophils 1.4 % (0.0-10.0); %Lymphocytes 14.4 % (21.0-51.0); %Monocytes 13.1 % (0.0-10.0); %Neutrophils 70.6 % (42.0-75.0); Hemoglobin 12.6 g/dL (14.0-18.0); Mean Corpuscular HGB CONC 32.9 g/dL (32.0-36.0); Mean Corpuscular Hemoglobin 29.3 pg (27.0-31.0); Mean Corpuscular Volume 89.1 fL (78.0-98.0); Mean Platelet Volume 5.9 fL (7.4-10.4); Platelet Count 332 thou/uL (130-400); RBC Distribution Width 13.3 % (11.5-14.5); Red Blood Cell (RBC) Count 4.31 mill/uL (4.70-6.10); White Blood Cell (WBC) Count 7.2 thou/uL (4.8-10.8)
[2021-08-01 05:21] LABS: ALT (SGPT) 15 U/L (8-55); AST (SGOT) 14 U/L (5-34); Albumin 3.2 g/dL (3.4-4.8); Alkaline Phosphatase 72 U/L (40-110); Anion Gap 15 mmol/L (10-20); BUN (Urea Nitrogen) 15 mg/dL (8.4-25.7); Bilirubin, Total 0.9 mg/dL (0.2-1.2); Calc. Creatinine Clearance 66 mL/min (70-130); Calcium 8.6 mg/dL (7.8-10.44); Carbon Dioxide 22 mmol/L (23-31); Chloride 97 mmol/L (98-107); Globulin 2.4 g/dL (2.4-3.5); Glucose 82 mg/dL (80-115); Potassium 4.1 mmol/L (3.5-5.1); Protein, Total 5.6 g/dL (5.8-8.1); Sodium 130 mmol/L (136-145)
[2021-08-01] MEDS ORDERED: traMADol HCl 50 MG TAB PO PRN (08:20)
[2021-08-01] MEDS ORDERED: Gabapentin 400 MG CAP PO PRN (09:33)
[2021-08-01] MEDS ORDERED: TADALAFIL 10 MG PO PRN (09:36)
[2021-08-01] MEDS: Famotidine/PF 20 mg/2ml Vial SLOW IVP SCH ×2 (10:10→20:19)
[2021-08-01] MEDS: Lisinopril/Hydrochlorothiazide 10 mg/12.5 mg Tablet PO SCH (10:10)
[2021-08-01] MEDS: Amlodipine 5 MG TAB PO SCH ×2 (10:11→20:20)
[2021-08-01] MEDS: Aspirin 81 mg Enteric Coated Tablet PO SCH (10:12)
[2021-08-01 12:28] LABS: SARS-CoV-2 PCR by NAA Not Detected (NotDetected)
[2021-08-01] MEDS: Enoxaparin Sodium 40 MG/0.4 ML SYRINGE SC SCH (20:19)
[2021-08-01] MEDS: Tamsulosin HCl 0.4 MG CAP PO SCH (20:20)
[2021-08-01] MEDS: Zolpidem Tartrate 5 MG TAB PO PRN (22:31)
[2021-08-01] MEDS: Lorazepam 2 MG/ML VIAL SLOW IVP PRN (22:31)
[2021-08-02] MEDS: Lisinopril/Hydrochlorothiazide 10 mg/12.5 mg Tablet PO SCH (09:52)
[2021-08-02] MEDS: Amlodipine 5 MG TAB PO SCH (09:52)
[2021-08-02] MEDS: Aspirin 81 mg Enteric Coated Tablet PO SCH (09:52)
[2021-08-02] MEDS: Famotidine/PF 20 mg/2ml Vial SLOW IVP SCH (09:53)
[2021-08-02 12:12] VITALS: BP 130/55; TEMP 97.4
== END 2021-08-02 12:38 | disposition home or self-care (01) | DRG 389 ==
LOC: ERS 19:12 → SURG B 23:06
PROVIDERS: ADMIT Specialist; ATTEND Specialist
DX: K56.7 Ileus, unspecified (principal); E87.1 Hypo-osmolality and hyponatremia; I10 Essential (primary) hypertension; E11.9 Type 2 diabetes mellitus without complications; E78.00 Pure hypercholesterolemia, unspecified; N40.0 Benign prostatic hyperplasia without lower urinary tract symptoms; J44.9 Chronic obstructive pulmonary disease, unspecified; N52.9 Male erectile dysfunction, unspecified; K21.9 Gastro-esophageal reflux disease without esophagitis; Z96.643 Presence of artificial hip joint, bilateral; F32.A Depression, unspecified; F41.9 Anxiety disorder, unspecified; G89.29 Other chronic pain; E78.5 Hyperlipidemia, unspecified; M51.36 Other intervertebral disc degeneration, lumbar region; Z20.822 Contact with and (suspected) exposure to COVID-19; F17.210 Nicotine dependence, cigarettes, uncomplicated; Z90.49 Acquired absence of other specified parts of digestive tract; Z85.038 Personal history of other malignant neoplasm of large intestine; Z79.84 Long term (current) use of oral hypoglycemic drugs; Z79.899 Other long term (current) drug therapy
CPT/HCPCS: 36415; 36416; 71045; 74022; 74177; 80053; 81003; 81015; 83605; 83690; 85025; 93005; 96374; 96375; J1650; J2060; J2270; J2405; J7050; Q9967; S0028; U0003; U0005

== ENCOUNTER 2021-09-05 14:00 | Inpatient (IN) | payer MEDICARE ==
[2021-09-06 14:48] VITALS: BMI 25.8
[2021-09-08] MEDS ORDERED: cefOXitin Sodium/Dextrose 2 GM/50 ML BAG ONE (08:01)
[2021-09-08] MEDS ORDERED: Fentanyl 100 MCG/2 ML VIAL ONE (08:17)
[2021-09-08 08:25] LABS: Anion Gap 14 mmol/L (10-20); BUN (Urea Nitrogen) 33 mg/dL (8.4-25.7); Calc. Creatinine Clearance 55 mL/min (70-130); Calcium 9.1 mg/dL (7.8-10.44); Carbon Dioxide 18 mmol/L (23-31); Chloride 95 mmol/L (98-107); Glucose 102 mg/dL (80-115); Potassium 6.1 mmol/L (3.5-5.1); Sodium 121 mmol/L (136-145)
[2021-09-08] MEDS ORDERED: Bupivacaine PF 0.5% 30 ML VIAL ONE (08:28)
[2021-09-08] MEDS ORDERED: Lidocaine 1% w/Epinephrine 1:100K 20 ML VIAL ONE (08:28)
[2021-09-08] MEDS ORDERED: Dextrose 5% in Water 1,000 ML IV PRN (11:17)
[2021-09-08] MEDS ORDERED: Dextrose 50% Abboject 50 ML SYRINGE SLOW IVP PRN (11:17)
[2021-09-08] MEDS ORDERED: HumaLOG 300 UNITS/3 ML VIAL SC PRN ×2 (11:17)
[2021-09-08] MEDS ORDERED: Acetaminophen 325 MG TAB PO PRN (11:39)
[2021-09-08] MEDS ORDERED: Loperamide HCl 2 MG CAP PO PRN (11:39)
[2021-09-08] MEDS ORDERED: Ondansetron ODT 4 MG TAB PO PRN (11:39)
[2021-09-08 12:11] LABS: #Basophils 0.1 thou/uL (0.0-0.2); #Eosinphils 0.4 thou/uL (0.0-0.7); #Lymphocytes 2.7 thou/uL (1.20-3.40); #Monocytes 0.7 thou/uL (0.11-0.59); #Neutrophils 6.2 thou/uL (1.40-6.50); %Eosinophils 3.7 % (0.0-10.0); %Lymphocytes 26.6 % (21.0-51.0); %Monocytes 7.3 % (0.0-10.0); %Neutrophils 61.4 % (42.0-75.0); Hemoglobin 11.5 g/dL (14.0-18.0); Mean Corpuscular HGB CONC 34.4 g/dL (32.0-36.0); Mean Corpuscular Hemoglobin 29.8 pg (27.0-31.0); Mean Corpuscular Volume 86.6 fL (78.0-98.0); Mean Platelet Volume 5.4 fL (7.4-10.4); Platelet Count 239 thou/uL (130-400); RBC Distribution Width 12.6 % (11.5-14.5); Red Blood Cell (RBC) Count 3.85 mill/uL (4.70-6.10)
[2021-09-08] MEDS ORDERED: Gabapentin 400 MG CAP PO PRN (12:17)
[2021-09-08 12:34] LABS: ALT (SGPT) 31 U/L (8-55); AST (SGOT) 13 U/L (5-34); Albumin 3.4 g/dL (3.4-4.8); Alkaline Phosphatase 79 U/L (40-110); Anion Gap 12 mmol/L (10-20); BUN (Urea Nitrogen) 29 mg/dL (8.4-25.7); Bilirubin, Total 0.3 mg/dL (0.2-1.2); Calc. Creatinine Clearance 64 mL/min (70-130); Calcium 8.6 mg/dL (7.8-10.44); Carbon Dioxide 16 mmol/L (23-31); Chloride 99 mmol/L (98-107); Globulin 2.7 g/dL (2.4-3.5); Glucose 94 mg/dL (80-115); Potassium 5.4 mmol/L (3.5-5.1); Protein, Total 6.1 g/dL (5.8-8.1); Sodium 122 mmol/L (136-145)
[2021-09-08] MEDS ORDERED: Escitalopram Oxalate 10 mg Tablet PO SCH (17:00)
[2021-09-08 18:43] LABS: Anion Gap 13 mmol/L (10-20); BUN (Urea Nitrogen) 27 mg/dL (8.4-25.7); Calc. Creatinine Clearance 58 mL/min (70-130); Calcium 8.7 mg/dL (7.8-10.44); Carbon Dioxide 17 mmol/L (23-31); Chloride 100 mmol/L (98-107); Glucose 90 mg/dL (80-115); Potassium 5.5 mmol/L (3.5-5.1); Sodium 124 mmol/L (136-145)
[2021-09-08] MEDS: Sodium Chloride 0.9% 1,000 ML IV SCH (20:14)
[2021-09-08] MEDS: Amlodipine 5 MG TAB PO SCH (20:23)
[2021-09-08] MEDS: Famotidine 20 MG TAB PO SCH (20:23)
[2021-09-08] MEDS ORDERED: Atorvastatin Calcium 20 MG TAB PO SCH (21:00)
[2021-09-08] MEDS ORDERED: Tamsulosin HCl 0.4 MG CAP PO SCH (21:00)
[2021-09-09] MEDS: Sodium Chloride 0.9% 1,000 ML IV SCH (05:36)
[2021-09-09 06:35] LABS: #Basophils 0.1 thou/uL (0.0-0.2); #Eosinphils 0.3 thou/uL (0.0-0.7); #Monocytes 0.6 thou/uL (0.11-0.59); #Neutrophils 5.2 thou/uL (1.40-6.50); %Basophils 0.8 % (0.0-1.0); %Eosinophils 3.2 % (0.0-10.0); %Lymphocytes 24.8 % (21.0-51.0); %Monocytes 7.8 % (0.0-10.0); %Neutrophils 63.5 % (42.0-75.0); Mean Corpuscular HGB CONC 33.6 g/dL (32.0-36.0); Mean Corpuscular Hemoglobin 29.1 pg (27.0-31.0); Mean Corpuscular Volume 86.5 fL (78.0-98.0); Mean Platelet Volume 5.5 fL (7.4-10.4); Platelet Count 236 thou/uL (130-400); RBC Distribution Width 12.7 % (11.5-14.5); Red Blood Cell (RBC) Count 3.77 mill/uL (4.70-6.10); White Blood Cell (WBC) Count 8.2 thou/uL (4.8-10.8)
[2021-09-09 06:42] LABS: Anion Gap 10 mmol/L (10-20); BUN (Urea Nitrogen) 26 mg/dL (8.4-25.7); Calc. Creatinine Clearance 68 mL/min (70-130); Calcium 8.6 mg/dL (7.8-10.44); Carbon Dioxide 19 mmol/L (23-31); Chloride 101 mmol/L (98-107); Glucose 88 mg/dL (80-115); Potassium 5.2 mmol/L (3.5-5.1); Sodium 125 mmol/L (136-145)
[2021-09-09] MEDS ORDERED: Enoxaparin Sodium 40 MG/0.4 ML SYRINGE SC SCH (09:00)
[2021-09-09] MEDS: Amlodipine 5 MG TAB PO SCH (09:46)
[2021-09-09] MEDS: Famotidine 20 MG TAB PO SCH (09:46)
[2021-09-09 15:45] VITALS: BP 144/74; TEMP 98.2
[2021-09-10 14:17] LABS: SARS-CoV-2 PCR by NAA Not Detected (NotDetected)
[2021-09-11] MEDS ORDERED: FLU VACC QS2021-22(65YR UP)/PF 240 MCG/0.7 ML SYRINGE IM ONE (18:45)
== END 2021-09-09 16:00 | disposition home or self-care (01) | DRG 394 ==
LOC: SURG A 09-08 06:57 → SURG B 09-08 10:47
PROVIDERS: ADMIT Surgery; ATTEND Hospitalist
DX: K94.13 Enterostomy malfunction (principal); C18.9 Malignant neoplasm of colon, unspecified; Z20.822 Contact with and (suspected) exposure to COVID-19; E87.1 Hypo-osmolality and hyponatremia; N17.9 Acute kidney failure, unspecified; M51.36 Other intervertebral disc degeneration, lumbar region; M19.90 Unspecified osteoarthritis, unspecified site; Z96.643 Presence of artificial hip joint, bilateral; F17.210 Nicotine dependence, cigarettes, uncomplicated; E86.0 Dehydration; E87.5 Hyperkalemia; K21.9 Gastro-esophageal reflux disease without esophagitis; E11.22 Type 2 diabetes mellitus with diabetic chronic kidney disease; E11.42 Type 2 diabetes mellitus with diabetic polyneuropathy; G89.29 Other chronic pain; E78.5 Hyperlipidemia, unspecified; I12.9 Hypertensive chronic kidney disease with stage 1 through stage 4 chronic kidney disease, or unspecified chronic kidney disease; N18.2 Chronic kidney disease, stage 2 (mild); N40.0 Benign prostatic hyperplasia without lower urinary tract symptoms; Z82.49 Family history of ischemic heart disease and other diseases of the circulatory system; Z79.84 Long term (current) use of oral hypoglycemic drugs; Z79.82 Long term (current) use of aspirin; Z79.899 Other long term (current) drug therapy; Z90.49 Acquired absence of other specified parts of digestive tract
CPT/HCPCS: 36415; 36416; 76770; 80048; 85025; 93005; 93010; J0694; J3010; J7050; S0020; U0003; U0005

== ENCOUNTER 2021-09-12 11:21 | Inpatient (IN) | payer MEDICARE ==
[2021-09-09 14:43] VITALS: BMI 25.8
[2021-09-12] MEDS ORDERED: cefOXitin Sodium/Dextrose 2 GM/50 ML BAG ONE (12:20)
[2021-09-12 12:28] LABS: Anion Gap 13 mmol/L (10-20); BUN (Urea Nitrogen) 18 mg/dL (8.4-25.7); Calc. Creatinine Clearance 59 mL/min (70-130); Calcium 10.3 mg/dL (7.8-10.44); Carbon Dioxide 21 mmol/L (23-31); Chloride 101 mmol/L (98-107); Glucose 110 mg/dL (80-115); Potassium 5.1 mmol/L (3.5-5.1); Sodium 130 mmol/L (136-145)
[2021-09-12] MEDS ORDERED: Famotidine/PF 20 mg/2ml Vial ONE (13:27)
[2021-09-12] MEDS ORDERED: Morphine 10 MG/ML VIAL ONE (13:27)
[2021-09-12] MEDS ORDERED: Dexamethasone 20 MG/5 ML VIAL ONE (13:46)
[2021-09-12] MEDS ORDERED: Phenylephrine 10 MG/ML VIAL ONE (13:46)
[2021-09-12] MEDS ORDERED: PROPOFOL 200 MG/20 ML VIAL ONE (13:46)
[2021-09-12] MEDS ORDERED: Rocuronium Bromide 10 MG/ML (10ML VIAL) ONE (13:46)
[2021-09-12] MEDS ORDERED: Glycopyrrolate 0.2 MG/ML 5 ML SYRINGE ONE (13:46)
[2021-09-12] MEDS ORDERED: Lidocaine 1% PF 5 ML VIAL ONE (13:46)
[2021-09-12] MEDS ORDERED: PACU-Morphine 4MG/ML VIAL SLOW IVP PRN (14:27)
[2021-09-12] MEDS ORDERED: Morphine Sulfate 2 MG/ML SYRINGE SLOW IVP PRN (14:27)
[2021-09-12] MEDS ORDERED: Promethazine HCl 25 MG/ML VIAL IM PRN ×2 (14:27→17:04)
[2021-09-12] MEDS ORDERED: Meperidine HCl/PF 25 MG/ML VIAL SLOW IVP PRN (14:27)
[2021-09-12] MEDS ORDERED: Promethazine HCl 25 MG/ML VIAL IVPB PRN (14:27)
[2021-09-12] MEDS ORDERED: Morphine 4 MG/ML VIAL ONE ×2 (15:22→15:43)
[2021-09-12] MEDS ORDERED: Promethazine HCl 25 MG/ML VIAL ONE (15:34)
[2021-09-12] MEDS ORDERED: hydrALAZINE 20 MG/ML VIAL SLOW IVP PRN (17:04)
[2021-09-12] MEDS ORDERED: HumaLOG 300 UNITS/3 ML VIAL SC PRN (17:04)
[2021-09-12] MEDS ORDERED: Ondansetron PF 4 MG/2 ML Vial IVP PRN (17:04)
[2021-09-12] MEDS ORDERED: Dextrose 5% in Water 1,000 ML IV PRN (17:04)
[2021-09-12] MEDS ORDERED: Dextrose 50% Abboject 50 ML SYRINGE SLOW IVP PRN (17:04)
[2021-09-12] MEDS ORDERED: Acetaminophen 325 MG TAB PO PRN (17:04)
[2021-09-12] MEDS ORDERED: Gabapentin 400 MG CAP PO PRN (17:18)
[2021-09-12] MEDS: Sodium Chloride 0.9% 1,000 ML IV SCH (17:35)
[2021-09-12] MEDS: Amlodipine 5 MG TAB PO SCH (20:30)
[2021-09-12] MEDS: cefOXitin 2 GM in Sodium Chloride 0.9% 100 ML IVPB SCH (20:30)
[2021-09-12] MEDS: Famotidine 20 MG TAB PO SCH (20:31)
[2021-09-12] MEDS: Tamsulosin HCl 0.4 MG CAP PO SCH (20:31)
[2021-09-12] MEDS: Famotidine/PF 20 mg/2ml Vial SLOW IVP SCH (20:31)
[2021-09-12] MEDS: Morphine 4 MG/ML VIAL SLOW IVP PRN (20:31)
[2021-09-13] MEDS: Morphine 4 MG/ML VIAL SLOW IVP PRN ×5 (01:36→22:27)
[2021-09-13] MEDS: HYDROcodone/Acetaminophen 10/325 mg Tablet PO PRN ×4 (01:36→14:55)
[2021-09-13] MEDS: cefOXitin 2 GM in Sodium Chloride 0.9% 100 ML IVPB SCH (03:54)
[2021-09-13] MEDS: Sodium Chloride 0.9% 1,000 ML IV SCH ×3 (05:44→20:34)
[2021-09-13 06:15] LABS: #Lymphocytes 0.8 thou/uL (1.20-3.40); #Monocytes 0.8 thou/uL (0.11-0.59); #Neutrophils 8.7 thou/uL (1.40-6.50); %Basophils 0.1 % (0.0-1.0); %Eosinophils 0.1 % (0.0-10.0); %Lymphocytes 7.7 % (21.0-51.0); %Monocytes 7.9 % (0.0-10.0); %Neutrophils 84.3 % (42.0-75.0); Hemoglobin 11.1 g/dL (14.0-18.0); Mean Corpuscular HGB CONC 33.4 g/dL (32.0-36.0); Mean Corpuscular Hemoglobin 29.4 pg (27.0-31.0); Mean Corpuscular Volume 87.8 fL (78.0-98.0); Mean Platelet Volume 5.4 fL (7.4-10.4); Platelet Count 241 thou/uL (130-400); RBC Distribution Width 12.8 % (11.5-14.5); Red Blood Cell (RBC) Count 3.79 mill/uL (4.70-6.10); White Blood Cell (WBC) Count 10.3 thou/uL (4.8-10.8)
[2021-09-13 06:30] LABS: Anion Gap 12 mmol/L (10-20); BUN (Urea Nitrogen) 19 mg/dL (8.4-25.7); Calc. Creatinine Clearance 51 mL/min (70-130); Carbon Dioxide 19 mmol/L (23-31); Chloride 103 mmol/L (98-107); Glucose 115 mg/dL (80-115); Potassium 5.4 mmol/L (3.5-5.1); Sodium 129 mmol/L (136-145)
[2021-09-13] MEDS: Famotidine 20 MG TAB PO SCH ×2 (08:37→20:33)
[2021-09-13] MEDS: Enoxaparin Sodium 40 MG/0.4 ML SYRINGE SC SCH (08:37)
[2021-09-13] MEDS: Amlodipine 5 MG TAB PO SCH ×2 (08:37→20:33)
[2021-09-13] MEDS: Famotidine/PF 20 mg/2ml Vial SLOW IVP SCH ×2 (08:38→20:34)
[2021-09-13] MEDS: Tamsulosin HCl 0.4 MG CAP PO SCH (20:33)
[2021-09-14] MEDS: HYDROcodone/Acetaminophen 10/325 mg Tablet PO PRN (01:59)
[2021-09-14 05:51] LABS: Anion Gap 8 mmol/L (10-20); BUN (Urea Nitrogen) 15 mg/dL (8.4-25.7); Calc. Creatinine Clearance 74 mL/min (70-130); Calcium 8.8 mg/dL (7.8-10.44); Carbon Dioxide 23 mmol/L (23-31); Chloride 106 mmol/L (98-107); Glucose 88 mg/dL (80-115); Potassium 4.3 mmol/L (3.5-5.1); Sodium 133 mmol/L (136-145)
[2021-09-14] MEDS: Enoxaparin Sodium 40 MG/0.4 ML SYRINGE SC SCH (08:15)
[2021-09-14] MEDS: Famotidine 20 MG TAB PO SCH (08:16)
[2021-09-14] MEDS: Amlodipine 5 MG TAB PO SCH (08:16)
[2021-09-14] MEDS: Famotidine/PF 20 mg/2ml Vial SLOW IVP SCH (08:17)
[2021-09-14 12:27] VITALS: BP 162/83; TEMP 98
== END 2021-09-14 12:35 | disposition home or self-care (01) | DRG 331 ==
LOC: SURG A 11:21
PROVIDERS: ADMIT Surgery; ATTEND Surgery
PROC: 0DBB0ZZ Excision of Ileum, Open Approach (ICD-10-PCS; principal; 2021-09-12)
DX: Z43.2 Encounter for attention to ileostomy (principal); I10 Essential (primary) hypertension; E78.5 Hyperlipidemia, unspecified; J44.9 Chronic obstructive pulmonary disease, unspecified; E11.42 Type 2 diabetes mellitus with diabetic polyneuropathy; M19.90 Unspecified osteoarthritis, unspecified site; Z96.643 Presence of artificial hip joint, bilateral; F17.210 Nicotine dependence, cigarettes, uncomplicated; F32.A Depression, unspecified; F41.9 Anxiety disorder, unspecified; N40.0 Benign prostatic hyperplasia without lower urinary tract symptoms; Z85.038 Personal history of other malignant neoplasm of large intestine; Z82.49 Family history of ischemic heart disease and other diseases of the circulatory system; Z83.3 Family history of diabetes mellitus; Z80.9 Family history of malignant neoplasm, unspecified; Z79.899 Other long term (current) drug therapy; Z79.84 Long term (current) use of oral hypoglycemic drugs
CPT/HCPCS: 36415; 36416; 80048; 85025; J0694; J1100; J1650; J2270; J2370; J2550; J2704; J3490; J7050; S0028

== ENCOUNTER 2022-01-27 08:59 | Outpatient (CLI) | payer MEDICARE ==
[2022-01-27] MEDS ORDERED: Iopamidol 370 76% 100 ML VIAL ONE (10:23)
== END 2022-01-27 09:00 | disposition home or self-care (01) ==
LOC: CT 08:59
PROVIDERS: ATTEND Internal Medicine Hematology & Oncology
DX: C18.7 Malignant neoplasm of sigmoid colon (principal); I70.0 Atherosclerosis of aorta
CPT/HCPCS: 71260; 74177; 82565

== ENCOUNTER 2022-09-28 08:15 | Outpatient (CLI) | payer MEDICARE ==
[2022-09-28] MEDS ORDERED: Iopamidol 370 76% 100 ML VIAL ONE (14:09)
== END 2022-09-28 08:16 | disposition home or self-care (01) ==
LOC: CT 08:15
PROVIDERS: ATTEND Internal Medicine Hematology & Oncology
DX: C18.7 Malignant neoplasm of sigmoid colon (principal)
CPT/HCPCS: 71260; 74177; Q9967